=== PATIENT | female | born 1960 | race Two or more races ===

== ENCOUNTER 2020-07-31 00:58 | Inpatient (IN) | payer OTHER ==
[~2020-07-31] VITALS: Ht 170.2 cm; Wt 120.5 kg
[~2020-07-31 00:58] MED LIST: ASPI-630 PO; ATOR20TA58 PO; FAMO20TA5 PO; FURO40TA4 PO; LEVO750T5 PO; LISI-517 PO; POTA8CAP19 PO; PRED20TA PO; SPIR25TA5 PO; UNABLE MC; [UNRECOGNIZED DRUG - OTHER]; adempas PO
--- NOTE | 2020-07-31 01:50 | RAD ---
EXAM: CHEST ONE VIEW. HISTORY: Chest pain. COMPARISON: 03/31/2020. FINDINGS: A frontal view of the chest is obtained. There are mild interstitial opacities in both bases. There is no pneumothorax or clear pleural effusi on. The heart is moderately enlarged. IMPRESSION: 1. Mild pulmonary edema. Moderate cardiomegaly. Electronically signed by: Judie Whitman MD (07/31/2020 1:48 AM) [facility]
[2020-07-31 02:06] LABS: BASO % 0 % (0-3); EOS % 0 % (0-3); HEMATOCRIT 42.4 % (36.0-47.0); HEMOGLOBIN 13.8 g/dL (12.0-15.5); LYMPH # 1.2 x10^3/uL (1.0-4.8); LYMPH % 11 % (24-48); MEAN CORPUSCULAR HEMOGLOBIN 29 pg (25-35); MEAN CORPUSCULAR HGB CONC 33 g/dL (31-37); MEAN CORPUSCULAR VOLUME 89 fL (79-100); MONO # 1.1 x10^3/uL (0.0-1.1); MONO % 9 % (0-9); NEUT # 9.1 x10^3/uL (1.8-7.7); NEUT % 79 % (31-73); PLATELET COUNT 188 x10^3/uL (140-400); RED BLOOD COUNT 4.77 x10^6/uL (3.50-5.40); RED CELL DISTRIBUTION WIDTH 16.9 % (11.5-14.5); WHITE BLOOD COUNT 11.4 x10^3/uL (4.0-11.0)
[2020-07-31 02:19] LABS: CALCIUM 8.1 mg/dL (8.5-10.1); GFR 56.6; POTASSIUM 3.1 mmol/L (3.5-5.1)
[2020-07-31 02:25] LABS: ALBUMIN 2.8 g/dL (3.4-5.0); ALBUMIN/GLOBULIN RATIO 0.8 (1.0-1.7); MAGNESIUM 1.8 mg/dL (1.8-2.4); TOTAL BILIRUBIN 1.5 mg/dL (0.2-1.0); TOTAL PROTEIN 6.5 g/dL (6.4-8.2)
--- NOTE | 2020-07-31 02:52 | PHYS DOC ---
Past Medical History Past Medical History: Cancer, CHF Additional Past Medical Histor: pulmonary hypertension, COLON CA Past Surgical History: Cholecystectomy Additional Past Surgical Histo: COLON RESECTION Smoking Status: Current Every Day Smoker Alcohol Use: Occasionally Drug Use: Methamphetamine Adult General Chief Complaint Chief Complaint: SHORTNESS OF BREATH [facility] HPI Patient is a 60 year old female with a complicated past medical history now pr esenting the emergency department complaining of new onset shortness of breath chest pain. Patient states that approximate 30 minutes prior to arrival she developed worsening sensation of pain sensation over the anterior portion of the chest as well as sensation palpitations. Patient also states that over the last 48 hours he had a general feeling of unwell feeling that she secondly has a subjective fever. Denies any nausea, vomiting, fever, chills, cough, dizziness or lightheadedness. Review of Systems Review of Systems Constitutional: Denies fever or chills [] Eyes: Denies change in visual acuity, redness, or eye pain [] HENT: Denies nasal congestion or sore throat [] Respiratory: Denies cough or shortness of breath [] Cardiovascular: No additional information not addressed in HPI [] GI: Denies abdominal pain, nausea, vomiting, bloody stools or diarrhea [] : Denies dysuria or hematuria [] Musculoskeletal: Denies back pain or joint pain [] Integument: Denies rash or skin lesions [] Neurologic: Denies headache, focal weakness or sensory changes [] Endocrine: Denies polyuria or polydipsia [] All other systems were reviewed and found to be within normal limits, except as documented in this note. Allergies Allergies Allergies Coded Allergies Type Severity Reaction Last Updated Verified Penicillins Allergy Intermediate "hives" 03/11/20 Yes Physical Exam Physical Exam Constitutional: Well developed, well nourished, no acute distress, non-toxic appearance. [] HENT: Normocephalic, atraumatic, bilateral external ears normal, oropharynx moist, no oral exudates, nose normal. [] Eyes: PERRLA, EOMI, conjunctiva normal, no discharge. [] Neck: Normal range of motion, no tenderness, supple, no stridor. [] Cardiovascular:Heart rate regular rhythm, no murmur [] Lungs & Thorax: Bilateral breath sounds clear to auscultation [] Abdomen: Bowel sounds normal, soft, no tenderness, no masses, no pulsatile masses. [] Skin: Warm, dry, no erythema, no rash. [] Back: No tenderness, no CVA tenderness. [] Extremities: No tenderness, no cyanosis, no clubbing, ROM intact, no edema. [] Neurologic: Alert and oriented X 3, normal motor function, normal sensory function, no focal deficits noted. [] Psychologic: Affect normal, judgement normal, mood normal. [] Current Patient Data Vital Signs Vital Signs Date Time Temp Pulse Resp B/P (MAP) Pulse Ox O2 Delivery O2 Flow Rate FiO2 07/31/20 01:00 98.2 111 18 164/100 (121) 93 Room Air 98.2 Lab Values Laboratory Tests Test 07/31/20 02:00 White Blood Count 11.4 x10^3/uL (4.0-11.0) H Red Blood Count 4.77 x10^6/uL (3.50-5.40) Hemoglobin 13.8 g/dL (12.0-15.5) Hematocrit 42.4 % (36.0-47.0) Mean Corpuscular Volume 89 fL (79-100) Mean Corpuscular Hemoglobin 29 pg (25-35) Mean Corpuscular Hemoglobin Concent 33 g/dL (31-37) Red Cell Distribution Width 16.9 % (11.5-14.5) H Platelet Count 188 x10^3/uL (140-400) Neutrophils (%) (Auto) 79 % (31-73) H Lymphocytes (%) (Auto) 11 % (24-48) L Monocytes (%) (Auto) 9 % (0-9) Eosinophils (%) (Auto) 0 % (0-3) Basophils (%) (Auto) 0 % (0-3) Neutrophils # (Auto) 9.1 x10^3/uL (1.8-7.7) H Lymphocytes # (Auto) 1.2 x10^3/uL (1.0-4.8) Monocytes # (Auto) 1.1 x10^3/uL (0.0-1.1) Eosinophils # (Auto) 0.0 x10^3/uL (0.0-0.7) Basophils # (Auto) 0.0 x10^3/uL (0.0-0.2) Sodium Level 138 mmol/L (136-145) Potassium Level 3.1 mmol/L (3.5-5.1) L Chloride Level 100 mmol/L (98-107) Carbon Dioxide Level 26 mmol/L (21-32) Anion Gap 12 (6-14) Blood Urea Nitrogen 15 mg/dL (7-20) Creatinine 1.0 mg/dL (0.6-1.0) Estimated GFR (Cockcroft-Gault) 56.6 BUN/Creatinine Ratio 15 (6-20) Glucose Level 115 mg/dL (70-99) H Calcium Level 8.1 mg/dL (8.5-10.1) L Magnesium Level 1.8 mg/dL (1.8-2.4) Total Bilirubin 1.5 mg/dL (0.2-1.0) H Aspartate Amino Transferase (AST) 42 U/L (15-37) H Alanine Aminotransferase (ALT) 47 U/L (14-59) Alkaline Phosphatase 173 U/L (46-116) H Troponin I Quantitative 0.069 ng/mL (0.000-0.055) TR-Nfz-N-Type Natriuretic Peptide 4809 pg/mL (0-124) H Total Protein 6.5 g/dL (6.4-8.2) Albumin 2.8 g/dL (3.4-5.0) L Albumin/Globulin Ratio 0.8 (1.0-1.7) L Lipase 52 U/L (73-393) L Laboratory Tests 07/31/20 02:00 Laboratory Tests 07/31/20 02:00 EKG EKG Prolonged CO interval intermittently increasing consistent with a type II AV block Radiology/Procedures Radiology/Procedures [] Course & Med Decision Making Course & Med Decision Making Pertinent Labs and Imaging studies reviewed. (See chart for details) 60-year-old female presented with nonspecific chest pain, palpitations and flulike illness. Will obtain ACS work-up as well as infectious work-up. Dragon Disclaimer Dragon Disclaimer This electronic medical record was generated, in whole or in part, using a voice recognition dictation system. Departure Departure Impression: Primary Impression: CHF exacerbation Disposition: ADMITTED INPT THIS HOSP Condition: GOOD Referrals: NO PCP (PCP) ALEN HAYWARD MD Jul 31, 2020 02:52
[2020-07-31] MEDS ORDERED: ONDANSETRON PF 4 MG/2 ML VIAL. IV PRN (03:00)
[2020-07-31 03:45] VITALS: BP 154/95
--- NOTE | 2020-07-31 05:33 | NUR ---
The patient, SARWAT GONZALEZ, 60 y/o, F admitted by JUDAH WYATT MD, was given written information regarding hospital policies, unit procedures and contact persons. Valuables were checked and left with patient at time of admission. Spoke with patient , Riaz. states that patient hasn't been taking her medications as prescribed and has been out of her atorvastatin for approx 1 week. also states that they have had issues getting the medications because the patients new patient case coordinator had her switch pharmacies. Patient currently uses [facility], but will be switching to [facility]. Patient states that she is a current smoker, "approx 1-2 cigarettes per month", "smoke meth but i haven't done that in 5 days since i have been sick". Patient refuses smoking cessation counseling and states that she does not need help with her substance abuse. Patient lost her twin sister approx 1 year ago to COVID and currently has 2 family members that are hospitalized d/t COVID. Patient was COVID positive in Jan 2020. Patient wears 2-4 L O2 NC PRN at home, and CPAP at night. States that she takes Milk of Mag 1-2 times per day for constipation. [facility] light in reach, will continue to monitor.
--- NOTE | 2020-07-31 05:42 | EKG ---
[facility] [address] [place] [address] Test Date: 2020-07-31 Test Time: 01:50:11 Pat Name: SARWAT GONZALEZ Department: Room: Gender: F [employer]: : 1960 Requested By: ALEN HAYWARD Order Number: [id number] Reading MD: Measurements Intervals [place] Rate: 123 P: NV: QRS: 153 QRSD: 114 T: 42 QT: 344 QTc: 499 Interpretive Statements IRREGULAR RHYTHM, NO P-WAVE FOUND ABNORMAL RIGHT AXIS DEVIATION LOW VOLTAGE RVH WITH REPOLARIZATION ABNORMALITY QRS(T) CONTOUR ABNORMALITY CONSISTENT WITH SEPTAL INFARCT AGE UNDETERMINED ABNORMAL ECG RI6.02 No previous ECG available for comparison
[2020-07-31 07:00] VITALS: BP 133/77
[2020-07-31] MEDS ORDERED: CALCIUM CARBONATE 500 MG TAB.CHEW PO PRN (08:00)
[2020-07-31] MEDS ORDERED: BISACODYL 10 MG SUPP.RECT. PR PRN (08:00)
[2020-07-31] MEDS ORDERED: MAGNESIUM HYDROXIDE 2,400 MG/30 ML ORAL.SUSP. PO PRN (08:00)
[2020-07-31] MEDS ORDERED: MAG HYDROX/ALUMINUM HYD/SIMETH 30 ML ORAL.SUSP PO PRN (08:00)
--- NOTE | 2020-07-31 08:15 | PDOC1 ---
History and Physical Date of Admission Date of Admission DATE: 07/31/20 TIME: 07:59 Identification/Chief Complaint Chief Complaint Shortness of breath Source Source: Chart review, Patient History of Present Illness History of Present Illness Patient is a 60-year-old female past medical history CHF, pulmonary hypertension, PE, who presents to the ER with complaints of worsening shortness of breath over the past 5 days. She also reports associated anterior chest pain. States she has generally not been feeling well recently with complaints of subjective fever and cough productive of green sputum. She denies any naus ea, vomiting, hemoptysis, or known sick exposures. Chest x-ray obtained in the ER shows some pulmonary edema. Troponin 0.069, D-dimer 3.84, BNP 4809. Will admit patient for further medical management. Past Medical History Cardiovascular: CHF, HTN, Hyperlipidemia, Pulmonary hypertension Pulmonary: Pulmonary embolus, Other GI: GERD Heme/Onc: Cancer Psych: Depression Past Surgical History Past Surgical History: Cholecystectomy, Colon Resection Family History Family History: Depression Social History Smoke: 1 pack per day ALCOHOL: occassional Drugs: Crystal meth Current Problem List Problem List Problems Medical Problems: (1) CHF exacerbation Status: Acute Current Medications Current Medications Current Medications Ondansetron HCl (Zofran) 4 mg PRN Q8HRS PRN IV NAUSEA/VOMITING; Start 07/31/20 at 03:00; Stop 08/01/20 at 02:59 Aspirin (Aspirin Chewable) 81 mg DAILYWBKFT PO ; Start 07/31/20 at 08:00 Atorvastatin Calcium (Lipitor) 20 mg HS PO ; Start 07/31/20 at 21:00 Famotidine (Pepcid) 20 mg BID PO ; Start 07/31/20 at 09:00 Lisinopril (Prinivil) 5 mg DAILY PO ; Start 07/31/20 at 09:00 Spironolactone (Aldactone) 25 mg BID PO ; Start 07/31/20 at 09:00 Non-Formulary Medication ([adempas] ) 2.5 mg TID PO ; Start 07/31/20 at 09:00; Jp OCHOA Furosemide (Lasix) 40 mg BID92 IVP ; Start 07/31/20 at 09:00 Potassium Chloride (Klor-Con) 40 meq DAILYWBKFT PO ; Start 07/31/20 at 08:00 Active Scripts Active Reported Lisinopril 5 Mg Tablet 5 Mg PO DAILY Famotidine 20 Mg Tablet 20 Mg PO BID Aspirin 81 Mg Tab.chew 81 Mg PO DAILY Atorvastatin Calcium 20 Mg Tablet 20 Mg PO HS Spironolactone 25 Mg Tablet 25 Mg PO BID Furosemide 40 Mg Tablet 40 Mg PO BID Potassium Chloride 8 Meq Capsule.er 16 Meq PO BID [adempas] 2.5 Mg PO TID Allergies Allergies: Coded Allergies: ketamine (Verified Allergy, Severe, Anaphylaxis, 07/31/20) Penicillins (Verified Allergy, Intermediate, "hives" , 03/11/20) ROS Review of System GENERAL: Fever. No history of weight change, weakness. SKIN: No bruising, hair changes or rashes. EYES: No blurred, double or loss of vision. NOSE AND THROAT: No history of nosebleeds, hoarseness or sore throat. HEART: Denies chest pain, denies palpitations. LUNGS: Shortness of breath, cough. Denies hemoptysis. GASTROINTESTINAL: Denies nausea, vomiting, abdominal pain. GENITOURINARY: Denies dysuria, frequency, urgency, hematuria. NEUROLOGIC: Denies history of numbness, tingling, tremor or weakness. PSYCHIATRIC: Denies anxiety, denies depression. ENDOCRINE: No history of heat or cold intolerance, polyuria or polydipsia. EXTREMITIES: Denies muscle weakness, joint pain, pain on walking or stiffness. Physical Exam Physical Exam General: Alert, Oriented X3, mild distress. Obese. HEENT: Atraumatic, EOMI Lungs: Bibasilar rales Heart: Tachycardic, no rubs Cardiovascular: S1, S2 Abdomen: Normal bowel sounds, Soft, No tenderness Extremities: +2 Bilateral leg edema Skin: Erythema of the bilateral lower extremities up to proximal moore. No breakdown, No significant lesion Neuro: Normal speech, Sensation intact Psych/Mental Status: Mental status NL, tearful Vitals Vitals Vital Signs Date Time Temp Pulse Resp B/P (MAP) Pulse Ox O2 Delivery O2 Flow Rate FiO2 07/31/20 04:44 Room Air 07/31/20 03:45 98.3 114 20 154/95 (114) 92 98.3 Labs Labs Laboratory Tests Test 07/31/20 02:00 07/31/20 07:20 White Blood Count 11.4 x10^3/uL (4.0-11.0) Red Blood Count 4.77 x10^6/uL (3.50-5.40) Hemoglobin 13.8 g/dL (12.0-15.5) Hematocrit 42.4 % (36.0-47.0) Mean Corpuscular Volume 89 fL (79-100) Mean Corpuscular Hemoglobin 29 pg (25-35) Mean Corpuscular Hemoglobin Concent 33 g/dL (31-37) Red Cell Distribution Width 16.9 % (11.5-14.5) Platelet Count 188 x10^3/uL (140-400) Neutrophils (%) (Auto) 79 % (31-73) Lymphocytes (%) (Auto) 11 % (24-48) Monocytes (%) (Auto) 9 % (0-9) Eosinophils (%) (Auto) 0 % (0-3) Basophils (%) (Auto) 0 % (0-3) Neutrophils # (Auto) 9.1 x10^3/uL (1.8-7.7) Lymphocytes # (Auto) 1.2 x10^3/uL (1.0-4.8) Monocytes # (Auto) 1.1 x10^3/uL (0.0-1.1) Eosinophils # (Auto) 0.0 x10^3/uL (0.0-0.7) Basophils # (Auto) 0.0 x10^3/uL (0.0-0.2) D-Dimer (Tiarra) 3.84 ug/mlFEU (0.00-0.50) Sodium Level 138 mmol/L (136-145) Potassium Level 3.1 mmol/L (3.5-5.1) Chloride Level 100 mmol/L (98-107) Carbon Dioxide Level 26 mmol/L (21-32) Anion Gap 12 (6-14) Blood Urea Nitrogen 15 mg/dL (7-20) Creatinine 1.0 mg/dL (0.6-1.0) Estimated GFR (Cockcroft-Gault) 56.6 BUN/Creatinine Ratio 15 (6-20) Glucose Level 115 mg/dL (70-99) Calcium Level 8.1 mg/dL (8.5-10.1) Magnesium Level 1.8 mg/dL (1.8-2.4) Total Bilirubin 1.5 mg/dL (0.2-1.0) Aspartate Amino Transf (AST/SGOT) 42 U/L (15-37) Alanine Aminotransferase (ALT/SGPT) 47 U/L (14-59) Alkaline Phosphatase 173 U/L (46-116) Troponin I Quantitative 0.069 ng/mL (0.000-0.055) 0.062 ng/mL (0.000-0.055) CV-Ddi-V-Type Natriuretic Peptide 4809 pg/mL (0-124) Total Protein 6.5 g/dL (6.4-8.2) Albumin 2.8 g/dL (3.4-5.0) Albumin/Globulin Ratio 0.8 (1.0-1.7) Lipase 52 U/L (73-393) Laboratory Tests Test 07/31/20 02:00 07/31/20 07:20 White Blood Count 11.4 x10^3/uL (4.0-11.0) Red Blood Count 4.77 x10^6/uL (3.50-5.40) Hemoglobin 13.8 g/dL (12.0-15.5) Hematocrit 42.4 % (36.0-47.0) Mean Corpuscular Volume 89 fL (79-100) Mean Corpuscular Hemoglobin 29 pg (25-35) Mean Corpuscular Hemoglobin Concent 33 g/dL (31-37) Red Cell Distribution Width 16.9 % (11.5-14.5) Platelet Count 188 x10^3/uL (140-400) Neutrophils (%) (Auto) 79 % (31-73) Lymphocytes (%) (Auto) 11 % (24-48) Monocytes (%) (Auto) 9 % (0-9) Eosinophils (%) (Auto) 0 % (0-3) Basophils (%) (Auto) 0 % (0-3) Neutrophils # (Auto) 9.1 x10^3/uL (1.8-7.7) Lymphocytes # (Auto) 1.2 x10^3/uL (1.0-4.8) Monocytes # (Auto) 1.1 x10^3/uL (0.0-1.1) Eosinophils # (Auto) 0.0 x10^3/uL (0.0-0.7) Basophils # (Auto) 0.0 x10^3/uL (0.0-0.2) D-Dimer (Tiarra) 3.84 ug/mlFEU (0.00-0.50) Sodium Level 138 mmol/L (136-145) Potassium Level 3.1 mmol/L (3.5-5.1) Chloride Level 100 mmol/L (98-107) Carbon Dioxide Level 26 mmol/L (21-32) Anion Gap 12 (6-14) Blood Urea Nitrogen 15 mg/dL (7-20) Creatinine 1.0 mg/dL (0.6-1.0) Estimated GFR (Cockcroft-Gault) 56.6 BUN/Creatinine Ratio 15 (6-20) Glucose Level 115 mg/dL (70-99) Calcium Level 8.1 mg/dL (8.5-10.1) Magnesium Level 1.8 mg/dL (1.8-2.4) Total Bilirubin 1.5 mg/dL (0.2-1.0) Aspartate Amino Transf (AST/SGOT) 42 U/L (15-37) Alanine Aminotransferase (ALT/SGPT) 47 U/L (14-59) Alkaline Phosphatase 173 U/L (46-116) Troponin I Quantitative 0.069 ng/mL (0.000-0.055) 0.062 ng/mL (0.000-0.055) IR-Pgh-Z-Type Natriuretic Peptide 4809 pg/mL (0-124) Total Protein 6.5 g/dL (6.4-8.2) Albumin 2.8 g/dL (3.4-5.0) Albumin/Globulin Ratio 0.8 (1.0-1.7) Lipase 52 U/L (73-393) Images Images PORTABLE CHEST 1V EXAM: CHEST ONE VIEW. HISTORY: Chest pain. COMPARISON: 03/31/2020. FINDINGS: A frontal view of the chest is obtained. There are mild interstitial opacities in both bases. There is no pneumothorax or clear pleural effusion. The heart is moderately enlarged. IMPRESSION: 1. Mild pulmonary edema. Moderate cardiomegaly. VTE Prophylaxis Ordered VTE Prophylaxis Devices: No VTE Pharmacological Prophylaxi: Yes Assessment/Plan Assessment/Plan Acute CHF exacerbation Elevated troponin Elevated D-dimer Hypokalemia Malnutrition Obesity COVID-19 PUI Plan: Chest x-ray shows mild pulmonary edema and cardiomegaly Consultation placed to cardiology Diurese with IV Lasix twice daily Will obtain echocardiogram Obtain CTA chest to evaluate for possible PE pit hand Replace potassium COVID-19 pending, influenza pending Resume home medications FEN - Cardiac diet PPX - Lovenox FULL CODE Dispo - inpatient for above Justifications for Admission Other Justification Acute CHF exacerbation, acute COPD SHELLI ELLIOTT MD Jul 31, 2020 08:15
[2020-07-31] MEDS: POTASSIUM CHLORIDE 20 MEQ TABLET.ER. PO SCH (08:22)
[2020-07-31] MEDS: FAMOTIDINE 20 MG TABLET. PO SCH ×2 (08:23→22:45)
[2020-07-31] MEDS: ASPIRIN CHEWABLE 81 MG TABLET. PO SCH (08:23)
[2020-07-31] MEDS: SPIRONOLACTONE 25 MG TABLET PO SCH ×2 (08:23→22:45)
[2020-07-31] MEDS: FUROSEMIDE 40 MG/4 ML VIAL. IVP SCH ×2 (08:23→12:47)
[2020-07-31] MEDS: LISINOPRIL 5 MG TABLET. PO SCH (08:24)
[2020-07-31] MEDS ORDERED: IOHEXOL 350 MG/ML 100 ML VIAL. ONE (08:44)
[2020-07-31] MEDS: ADEMPAS 2.5 MG PO SCH ×3 (09:00→21:00)
[2020-07-31] MEDS ORDERED: ENOXAPARIN 40 MG/0.4 ML SYRINGE. SQ SCH (09:00)
--- NOTE | 2020-07-31 09:27 | RAD ---
EXAM: CT chest with contrast - pulmonary embolus protocol CLINICAL HISTORY: Chest pain, elevated d-dimer COMPARISON: CT chest 03/31/2020 TECHNIQUE: CT of the chest following the administration of intravenous contrast during the pulmonary arterial phase. Axial, coronal and sagittal reformatted images were generated including MIP images. ---PQRS compliance statement - One or more of the following individualized dose reduction techniques were utilized for this study: 1. Automated exposure control 2. Adjustment of the mA and/or kV according to patient size 3. Use of iterative reconstruction technique--- FINDINGS: CHEST: Diagnostic quality: Suboptimal contrast bolus and motion artifact limits evaluation. Pulmonary emboli: Examination significantly limited for pulmonary embolus. However within these cons traints no filling defect is seen within a right lower lobe subsegmental pulmonary artery (series 3 i mage 85-89). There may also be pulmonary emboli in the segmental branches of the left lower lobe alth ough evaluation is limited given contrast bolus. Right heart strain: Enlargement of the right ventricle although this appears chronic compared to 03/31 and may be seen with right heart failure although component of right heart strain cannot be exc luded. Pulmonary arteries: Normal in caliber. Heart is moderately enlarged. As above there is enlargement of the right ventricle and right atrium. No pericardial effusion. Coronary artery calcifications are seen. No pleural effusion or pneumothorax. No axillary lymphadenopathy. Prominent mediastinal lymph nodes are seen, for example a prevascular ly mph node measures 9 mm short axis. Calcified mediastinal and hilar lymph nodes are seen. For example a calcified precarinal lymph node measures 1.7 x 1.2 cm. Linear and bandlike opacities lower lobes likely scarring/atelectasis. Associated patchy opacities ar e also seen may represent atelectasis although superimposed consolidative process is not excluded. Ca lcified granuloma are seen. Visualized Upper abdomen: Mild retroperitoneal infiltration of the upper abdomen is seen of uncertai n clinical significance, Bones: Multilevel degenerative changes of spine are seen. No aggressive osseous lesion. However evalu ation is limited given MIP reconstructions. IMPRESSION: 1. Pulmonary emboli are seen within the segmental pulmonary arterial branches of the lower lobes. 2. Enlargement of the right ventricle is similar to 03/31/2020, likely chronic right heart failure al though given these findings, right heart strain cannot be excluded. 3. Patchy opacities in lung bases may represent multifocal consolidative process or atelectasis or e tara infarction may also have this appearance. Imaging follow-up in 3-6 months is recommended to excl ude underlying mass. Findings discussed with patient's nurse Seth at 07/31/2020 9:23 AM. FOR INTERNAL CODING PURPOSES RESULT CODE: (C) Electronically signed by: Darrin Bynum MD (07/31/2020 9:25 AM) [facility]
[2020-07-31 10:19] LABS: INFLUENZA A PATIENT NEGATIVE (NEGATIVE); INFLUENZA B PATIENT NEGATIVE (NEGATIVE)
[2020-07-31] MEDS ORDERED: NICOTINE 21MG PATCH. TD PRN (10:45)
[2020-07-31 11:00] VITALS: BP 128/83
[2020-07-31] MEDS ORDERED: DEXTROSE 50% 25 GM / 50ML DISP.SYRIN. IV ONE (12:00)
[2020-07-31] MEDS ORDERED: SODIUM BICARB ADULT 8.4% 50 MEQ/50 ML DISP.SYRIN. ONE (12:00)
[2020-07-31] MEDS ORDERED: ATROPINE 0.5 MG/5 ML DISP.SYRINGE. ONE (12:00)
[2020-07-31] MEDS ORDERED: EPINEPHrine SYRINGE 1 MG/10 ML SYRINGE ONE (12:00)
[2020-07-31] MEDS ORDERED: CALCIUM CHLORIDE 1,000 MG/10 ML DISP.SYRIN ONE (12:00)
[2020-07-31] MEDS: DOXYCYCLINE HYCLATE 100 MG in IV DEXTROSE 5% 100ML 100 ML IV SCH ×2 (12:48→22:45)
[2020-07-31] MEDS: predniSONE 20 MG TABLET PO SCH (12:49)
--- NOTE | 2020-07-31 13:22 | RAD ---
CLINICAL HISTORY: Reason: PE / Spl. Instructions: / History: COMPARISON: None available. TECHNIQUE: Ultrasound evaluation of both legs was performed from the groin to the upper calf with [place] scale, sp ectral and color doppler evaluation. FINDINGS: The common femoral vein, and femoral vein, including the saphenous-femoral junction are normal in jessi earance. Color and spectral Doppler evaluation demonstrates normal spontaneous flow, augmentation and phasicity. The popliteal vein and visualized calf veins also demonstrate normal compressibility and flow. Soft tissue edema about the lower legs bilaterally. IMPRESSION: 1. No evidence for DVT in the bilateral lower extremities. 2. Soft tissue edema about the lower legs bilaterally. Electronically signed by: Darrin Bynum MD (07/31/2020 1:19 PM) [facility]
[2020-07-31 14:04] LABS: BARBITURATES NEG (NEG); BENZODIAZEPINES NEG (NEG); CANNABINOIDS NEG (NEG); COCAINE NEG (NEG); METHADONE NEG (NEG); OPIATES NEG (NEG); PHENCYCLIDINE NEG (NEG)
[2020-07-31 14:05] LABS: AMPHETAMINE/METHAMPHETAMINE POS (NEG)
[2020-07-31 15:00] VITALS: BP 118/71
--- NOTE | 2020-07-31 16:35 | PDOC2 ---
CONSULT Date of Consult Date of Consult DATE: 07/31/20 TIME: 16:29 Reason for Consult Reason for Consult: Chest pain and shortness of breath Referring Physician Referring Physician: Dr. Junior Identification/Chief Complaint Chief Complaint Shortness of breath Source Source: Chart review, Patient History of Present Illness Reason for Visit: The patient is a 60-year-old female who reports episodes of increasing shortness of breath and chest pressure over the past several days. She came to the emergency room for treatment and evaluation. Chest x-ray showed mild pulmonary edema and moderate cardiomegaly. Initial troponins were 0.069, 0.062 and 0.060. EKG showed no acute ischemic changes. BNP was mildly elevated at 09/02/2008. The patient then proceeded to a CTA of the chest which was positive for pu lmonary emboli in the segmental pulmonary arteries in the branches to the lower lobes. Lower extremity ultrasound study showed no DVT. She has been placed on full dose Lovenox. Patient's history is also difficult giving for heart failure and pulmonary hypertension. She additionally has a history of colon cancer and continues to smoke 1 pack of cigarettes a day. Covid testing has come back negative. Past Medical History Cardiovascular: CHF, HTN, Hyperlipidemia, Pulmonary hypertension Pulmonary: Pulmonary embolus, Other GI: GERD Heme/Onc: Cancer Psych: Depression Past Surgical History Past Surgical History: Cholecystectomy, Colon Resection Family History Family History: Hypertension Social History 1 pack per day ALCOHOL: occassional Current Problem List Problem List Problems Medical Problems: (1) CHF exacerbation Status: Acute Current Medications Current Medications Current Medications Ondansetron HCl (Zofran) 4 mg PRN Q8HRS PRN IV NAUSEA/VOMITING; Start 07/31/20 at 03:00; Stop 07/31/20 at 08:02; Status DC Aspirin (Aspirin Chewable) 81 mg DAILYWBKFT PO Last administered on 07/31/20at 08:23; Start 07/31/20 at 08:00 Atorvastatin Calcium (Lipitor) 20 mg HS PO ; Start 07/31/20 at 21:00 Famotidine (Pepcid) 20 mg BID PO Last administered on 07/31/20at 08:23; Start 07/31/20 at 09:00 Lisinopril (Prinivil) 5 mg DAILY PO Last administered on 07/31/20at 08:24; Start 07/31/20 at 09:00 Spironolactone (Aldactone) 25 mg BID PO Last administered on 07/31/20at 08:23; Start 07/31/20 at 09:00 Non-Formulary Medication ([adempas] ) 2.5 mg TID PO Last administered on 07/31/20at 12:44; Start 07/31/20 at 09:00; Status UNV Furosemide (Lasix) 40 mg BID92 IVP Last administered on 07/31/20at 12:47; Start 07/31/20 at 09:00 Potassium Chloride (Klor-Con) 40 meq DAILYWBKFT PO Last administered on 07/31/20at 08:22; Start 07/31/20 at 08:00 Ondansetron HCl (Zofran) 4 mg PRN Q6HRS PRN IVP NAUSEA/VOMITING; Start 07/31/20 at 08:00 Al Hydroxide/Mg Hydroxide (Mylanta Plus Xs) 30 ml PRN Q3HRS PRN PO HEARTBURN / GAS; Start 07/31/20 at 08:00 Calcium Carbonate/ Glycine (Tums) 500 mg PRN Q3HRS PRN PO UPSET STOMACH; Start 07/31/20 at 08:00 Morphine Sulfate (Morphine Sulfate) 2 mg PRN Q1HR PRN IV PAIN; Start 07/31/20 at 08:00 Acetaminophen (Tylenol) 650 mg PRN Q6HRS PRN PO Headaches, Temp > 101.5F; Start 07/31/20 at 08:00 Magnesium Hydroxide (Milk Of Magnesia) 2,400 mg PRN Q12HR PRN PO CONSTIPATION; Start 07/31/20 at 08:00 Bisacodyl (Dulcolax Supp) 10 mg PRN DAILY PRN IN CONSTIPATION; Start 07/31/20 at 08:00 Enoxaparin Sodium (Lovenox 40mg Syringe) 40 mg Q12HR SQ Last administered on 07/31/20at 08:24; Start 07/31/20 at 09:00; Stop 07/31/20 at 10:49; Status DC Iohexol (Omnipaque 350 Mg/ml) 100 ml STK-MED ONCE .ROUTE ; Start 07/31/20 at 08:44; Stop 07/31/20 at 08:45; Status DC Enoxaparin Sodium (Lovenox Per Pharmacy Treatment Dosing) 1 each BID PRN MC SEE COMMENTS; Start 07/31/20 at 10:15 Nicotine (Nicoderm Cq 21mg) 1 patch PRN DAILY PRN TD SMOKING CESSATION; Start 07/31/20 at 10:45 Enoxaparin Sodium (Lovenox 80mg Syringe) 80 mg 1X ONCE SQ Last administered on 07/31/20at 11:02; Start 07/31/20 at 11:00; Stop 07/31/20 at 11:02; Status DC Enoxaparin Sodium (Lovenox 120mg Syringe) 120 mg Q12HR SQ ; Start 07/31/20 at 21:00 Doxycycline Hyclate 100 mg/ Dextrose 100 ml @ 50 mls/hr Q12HR IV Last administered on 07/31/20at 12:48; Start 07/31/20 at 11:00; Stop 08/05/20 at 10:59 Prednisone (Prednisone) 40 mg DAILY PO Last administered on 07/31/20at 12:49; Start 07/31/20 at 11:00; Stop 08/06/20 at 10:59 Fluticasone/ Vilanterol (Breo Ellipta 100-25 Mcg) 1 puff DAILY INH ; Start 08/01/20 at 09:00 Active Scripts Active Reported Lisinopril 5 Mg Tablet 5 Mg PO DAILY Famotidine 20 Mg Tablet 20 Mg PO BID Aspirin 81 Mg Tab.chew 81 Mg PO DAILY Atorvastatin Calcium 20 Mg Tablet 20 Mg PO HS Spironolactone 25 Mg Tablet 25 Mg PO BID Furosemide 40 Mg Tablet 40 Mg PO BID Potassium Chloride 8 Meq Capsule.er 16 Meq PO BID [adempas] 2.5 Mg PO TID Allergies Allergies: Coded Allergies: ketamine (Verified Allergy, Severe, Anaphylaxis, 07/31/20) Penicillins (Verified Allergy, Intermediate, "hives" , 03/11/20) ROS General: YES: Fatigue Respiratory: YES: Shortness of breath, SOB with excertion Cardiovascular: yes Chest Pain Physical Exam General: mild distress Lungs: Other (Mildly decreased breath sounds in the bases.) Heart: Regular rate Abdomen: Normal bowel sounds Vitals VITALS Vital Signs Date Time Temp Pulse Resp B/P (MAP) Pulse Ox O2 Delivery O2 Flow Rate FiO2 07/31/20 15:00 98.3 114 22 118/71 (87) 90 Nasal Cannula 2.0 98.3 Labs Labs Laboratory Tests Test 07/31/20 02:00 07/31/20 07:20 07/31/20 08:20 07/31/20 09:30 White Blood Count 11.4 x10^3/uL (4.0-11.0) Red Blood Count 4.77 x10^6/uL (3.50-5.40) Hemoglobin 13.8 g/dL (12.0-15.5) Hematocrit 42.4 % (36.0-47.0) Mean Corpuscular Volume 89 fL (79-100) Mean Corpuscular Hemoglobin 29 pg (25-35) Mean Corpuscular Hemoglobin Concent 33 g/dL (31-37) Red Cell Distribution Width 16.9 % (11.5-14.5) Platelet Count 188 x10^3/uL (140-400) Neutrophils (%) (Auto) 79 % (31-73) Lymphocytes (%) (Auto) 11 % (24-48) Monocytes (%) (Auto) 9 % (0-9) Eosinophils (%) (Auto) 0 % (0-3) Basophils (%) (Auto) 0 % (0-3) Neutrophils # (Auto) 9.1 x10^3/uL (1.8-7.7) Lymphocytes # (Auto) 1.2 x10^3/uL (1.0-4.8) Monocytes # (Auto) 1.1 x10^3/uL (0.0-1.1) Eosinophils # (Auto) 0.0 x10^3/uL (0.0-0.7) Basophils # (Auto) 0.0 x10^3/uL (0.0-0.2) D-Dimer (Tiarra) 3.84 ug/mlFEU (0.00-0.50) Sodium Level 138 mmol/L (136-145) Potassium Level 3.1 mmol/L (3.5-5.1) Chloride Level 100 mmol/L (98-107) Carbon Dioxide Level 26 mmol/L (21-32) Anion Gap 12 (6-14) Blood Urea Nitrogen 15 mg/dL (7-20) Creatinine 1.0 mg/dL (0.6-1.0) Estimated GFR (Cockcroft-Gault) 56.6 BUN/Creatinine Ratio 15 (6-20) Glucose Level 115 mg/dL (70-99) Calcium Level 8.1 mg/dL (8.5-10.1) Magnesium Level 1.8 mg/dL (1.8-2.4) Total Bilirubin 1.5 mg/dL (0.2-1.0) Aspartate Amino Transf (AST/SGOT) 42 U/L (15-37) Alanine Aminotransferase (ALT/SGPT) 47 U/L (14-59) Alkaline Phosphatase 173 U/L (46-116) Troponin I Quantitative 0.069 ng/mL (0.000-0.055) 0.062 ng/mL (0.000-0.055) ZZ-Mss-K-Type Natriuretic Peptide 4809 pg/mL (0-124) Total Protein 6.5 g/dL (6.4-8.2) Albumin 2.8 g/dL (3.4-5.0) Albumin/Globulin Ratio 0.8 (1.0-1.7) Lipase 52 U/L (73-393) Procalcitonin 0.25 ng/mL (0.00-0.10) Influenza Type A Antigen Negative (NEGATIVE) Influenza Type B Antigen Negative (NEGATIVE) SARS-CoV-2 Antigen (Rapid) Negative (NEGATIVE) Test 07/31/20 11:00 07/31/20 13:15 Troponin I Quantitative 0.060 ng/mL (0.000-0.055) Urine Opiates Screen Neg (NEG) Urine Methadone Screen Neg (NEG) Urine Barbiturates Neg (NEG) Urine Phencyclidine Screen Neg (NEG) Urine Amphetamine/Methamphetamine Pos (NEG) Urine Benzodiazepines Screen Neg (NEG) Urine Cocaine Screen Neg (NEG) Urine Cannabinoids Screen Neg (NEG) Urine Ethyl Alcohol Neg (NEG) Laboratory Tests Test 07/31/20 02:00 07/31/20 07:20 07/31/20 08:20 07/31/20 09:30 White Blood Count 11.4 x10^3/uL (4.0-11.0) Red Blood Count 4.77 x10^6/uL (3.50-5.40) Hemoglobin 13.8 g/dL (12.0-15.5) Hematocrit 42.4 % (36.0-47.0) Mean Corpuscular Volume 89 fL (79-100) Mean Corpuscular Hemoglobin 29 pg (25-35) Mean Corpuscular Hemoglobin Concent 33 g/dL (31-37) Red Cell Distribution Width 16.9 % (11.5-14.5) Platelet Count 188 x10^3/uL (140-400) Neutrophils (%) (Auto) 79 % (31-73) Lymphocytes (%) (Auto) 11 % (24-48) Monocytes (%) (Auto) 9 % (0-9) Eosinophils (%) (Auto) 0 % (0-3) Basophils (%) (Auto) 0 % (0-3) Neutrophils # (Auto) 9.1 x10^3/uL (1.8-7.7) Lymphocytes # (Auto) 1.2 x10^3/uL (1.0-4.8) Monocytes # (Auto) 1.1 x10^3/uL (0.0-1.1) Eosinophils # (Auto) 0.0 x10^3/uL (0.0-0.7) Basophils # (Auto) 0.0 x10^3/uL (0.0-0.2) D-Dimer (Tiarra) 3.84 ug/mlFEU (0.00-0.50) Sodium Level 138 mmol/L (136-145) Potassium Level 3.1 mmol/L (3.5-5.1) Chloride Level 100 mmol/L (98-107) Carbon Dioxide Level 26 mmol/L (21-32) Anion Gap 12 (6-14) Blood Urea Nitrogen 15 mg/dL (7-20) Creatinine 1.0 mg/dL (0.6-1.0) Estimated GFR (Cockcroft-Gault) 56.6 BUN/Creatinine Ratio 15 (6-20) Glucose Level 115 mg/dL (70-99) Calcium Level 8.1 mg/dL (8.5-10.1) Magnesium Level 1.8 mg/dL (1.8-2.4) Total Bilirubin 1.5 mg/dL (0.2-1.0) Aspartate Amino Transf (AST/SGOT) 42 U/L (15-37) Alanine Aminotransferase (ALT/SGPT) 47 U/L (14-59) Alkaline Phosphatase 173 U/L (46-116) Troponin I Quantitative 0.069 ng/mL (0.000-0.055) 0.062 ng/mL (0.000-0.055) JL-Nvs-H-Type Natriuretic Peptide 4809 pg/mL (0-124) Total Protein 6.5 g/dL (6.4-8.2) Albumin 2.8 g/dL (3.4-5.0) Albumin/Globulin Ratio 0.8 (1.0-1.7) Lipase 52 U/L (73-393) Procalcitonin 0.25 ng/mL (0.00-0.10) Influenza Type A Antigen Negative (NEGATIVE) Influenza Type B Antigen Negative (NEGATIVE) SARS-CoV-2 Antigen (Rapid) Negative (NEGATIVE) Test 07/31/20 11:00 07/31/20 13:15 Troponin I Quantitative 0.060 ng/mL (0.000-0.055) Urine Opiates Screen Neg (NEG) Urine Methadone Screen Neg (NEG) Urine Barbiturates Neg (NEG) Urine Phencyclidine Screen Neg (NEG) Urine Amphetamine/Methamphetamine Pos (NEG) Urine Benzodiazepines Screen Neg (NEG) Urine Cocaine Screen Neg (NEG) Urine Cannabinoids Screen Neg (NEG) Urine Ethyl Alcohol Neg (NEG) Images Images Chest x-ray with mild pulmonary edema and moderate cardiomegaly. CTA of the chest is positive for pulmonary emboli in the segmental pulmonary artery branches to the lower lobes. Lower extremity ultrasound is negative for DVTs. Assessment/Plan Assessment/Plan 1. Pulmonary emboli. Positive CTA scan as above. Patient has been started on full dose Lovenox. We will check an echocardiogram for right and left LV function and signs of right-sided distress. 2. Congestive heart failure. Mild diuresis as tolerated with monitoring of potassium. 3. History of pulmonary hypertension. Echo as above. Continue treatment of underlying pulmonary emboli. 4. History of colon cancer. 5. Hypokalemia. Replace and monitor. Thank you for allowing us to participate in the care of your patient. DUSTY MENDOZA MD Jul 31, 2020 16:35
--- NOTE | 2020-07-31 17:11 | CONS ---
DATE OF CONSULTATION: 07/31/2020 I was asked to see this 60-year-old lady for pulmonary embolism. HISTORY OF PRESENT ILLNESS: She has history of [id number] smoking, continues to smoke. She does have COPD. She is on oxygen 2-4 liters, which she uses as p.r.n. basis. She has not felt well for the past few days. She has had increased shortness of breath, cough and wheezing. She denies fever or chills. She has had chest pain. PAST MEDICAL HISTORY: Colon cancer, status post colon resection in 2016 at [facility], pulmonary embolism in 2017 status post 5.5 moths of Lovenox, CHF, COPD, hypertension, cholecystectomy. ALLERGIES: PENICILLIN, KETAMINE. MEDICATIONS: Currently, she is on Lovenox 1 mg/kg b.i.d., Lipitor, prednisone, doxycycline, Lasix, Pepcid, spironolactone, aspirin, potassium. SOCIAL HISTORY: History of [id number] smoking, continues to smoke. FAMILY HISTORY: Depression. REVIEW OF SYSTEMS: As mentioned as above, other systems otherwise negative. PHYSICAL EXAMINATION: GENERAL: This is an overweight lady. VITAL SIGNS: Her O2 saturation on 2.5 liters of oxygen is 92%, respiratory rate 20, heart rate 58, blood pressure 154/95, temperature 98.1. HEENT: Normocephalic, atraumatic. CARDIOVASCULAR: Regular rate and rhythm. CHEST INSPECTION: There are no accessory muscle use. ABDOMEN: Obese. EXTREMITIES: There is edema. NEUROLOGIC: Alert and oriented. LABORATORY DATA: I reviewed the following lab data: CT of the chest did show pulmonary embolism within segmental pulmonary arterial branches of the lower lobes, enlargement of right ventricle patchy opacities in right lung base, infiltrate/atelectasis. Sodium 138, potassium 2.1, chloride 100, CO2 of 26, BUN 15, creatinine 1, glucose 115, AST 42, ALT 47, alk phos 147. Troponin 0.069 and 0.062. BNP 4809. IMPRESSION: 1. Acute on chronic respiratory failure, multifactorial in etiology, including pulmonary embolism, acute exacerbation of chronic obstructive pulmonary disease, acute bronchitis, acute diastolic congestive heart failure. 2. Abnormal CT of the chest. 3. Pulmonary embolism. 4. Acute exacerbation of chronic obstructive pulmonary disease. 5. Smoker. 6. History of pulmonary embolism. 7. History of colon cancer status post resection. 8. COVID-19 person under investigation. 9. Hypokalemia. 10. Obesity, obstructive sleep apnea-hypopnea syndrome. PLAN AND RECOMMENDATIONS: 1. Titrate FiO2 to keep O2 saturation 92%. 2. Continue prednisone. 3. Continue with doxycycline. 4. Agree with Lovenox 1 mg/kg every 12 hours. 5. Pepcid for stress ulcer prophylaxis. 6. Follow up COVID-19 testing. 7. Replace potassium. 8. This is her second pulmonary embolism, she will require lifelong anticoagulation. The findings and recommendations were discussed with the patient and Dr. Junior and RN. Thank you very much for allowing me to participate in care of this very nice lady. ALE WALH M.D. DR: Crispin JOB#: [id number] / [id number] MARIANA
[2020-07-31 19:00] VITALS: BP 116/79
[2020-07-31] MEDS: ATORVASTATIN CALCIUM 20 MG TABLET PO SCH (22:45)
[2020-08-01 03:00] VITALS: BP 118/75
[2020-08-01 05:05] LABS: BASO % 0 % (0-3); EOS % 0 % (0-3); HEMATOCRIT 41.5 % (36.0-47.0); HEMOGLOBIN 13.4 g/dL (12.0-15.5); LYMPH # 1.3 x10^3/uL (1.0-4.8); LYMPH % 17 % (24-48); MEAN CORPUSCULAR HEMOGLOBIN 29 pg (25-35); MEAN CORPUSCULAR HGB CONC 32 g/dL (31-37); MEAN CORPUSCULAR VOLUME 89 fL (79-100); MONO # 0.7 x10^3/uL (0.0-1.1); MONO % 9 % (0-9); NEUT # 5.9 x10^3/uL (1.8-7.7); NEUT % 74 % (31-73); PLATELET COUNT 194 x10^3/uL (140-400); RED BLOOD COUNT 4.67 x10^6/uL (3.50-5.40); RED CELL DISTRIBUTION WIDTH 16.3 % (11.5-14.5)
[2020-08-01 05:46] LABS: CALCIUM 8.1 mg/dL (8.5-10.1); CREATININE 1.2 mg/dL (0.6-1.0); GFR 45.8; POTASSIUM 3.3 mmol/L (3.5-5.1)
[2020-08-01 07:00] VITALS: BP 117/82
[2020-08-01] MEDS: ADEMPAS 2.5 MG PO SCH (09:00)
[2020-08-01] MEDS: FAMOTIDINE 20 MG TABLET. PO SCH ×2 (09:04→20:48)
[2020-08-01] MEDS: SPIRONOLACTONE 25 MG TABLET PO SCH ×2 (09:04→20:48)
[2020-08-01] MEDS: POTASSIUM CHLORIDE 20 MEQ TABLET.ER. PO SCH (09:04)
[2020-08-01] MEDS: ASPIRIN CHEWABLE 81 MG TABLET. PO SCH (09:04)
--- NOTE | 2020-08-01 09:04 | EKG ---
[facility] [address] [place] [address] Test Date: 2020-08-01 Test Time: 09:02:11 Pat Name: SARWAT GONZALEZ Department: Room: 671 1 Gender: F Design Chief: : 1960 Requested By: DUSTY MENDOZA Order Number: [id number] Reading MD: Measurements Intervals Gage Rate: 103 P: TX: QRS: 139 QRSD: 112 T: -5 QT: 378 QTc: 497 Interpretive Statements IRREGULAR RHYTHM, NO P-WAVE FOUND VENTRICULAR PREMATURE COMPLEX(ES) ABNORMAL RIGHT AXIS DEVIATION LOW LIMB LEAD VOLTAGE RIGHT VENTRICULAR HYPERTROPHY QRS(T) CONTOUR ABNORMALITY CONSISTENT WITH SEPTAL INFARCT AGE UNDETERMINED CONSISTENT WITH HIGH LATERAL INFARCT PROBABLY OLD T ABNORMALITY IN ANTERIOR LEADS INFERIOR LEADS ABNORMAL ECG RI6.01 Compared to ECG 07/31/2020 01:50:11 T-wave abnormality now present Early repolarization no longer present Myocardial infarct finding still present
[2020-08-01] MEDS: LISINOPRIL 5 MG TABLET. PO SCH (09:05)
[2020-08-01] MEDS: predniSONE 20 MG TABLET PO SCH (09:05)
[2020-08-01] MEDS: FUROSEMIDE 40 MG/4 ML VIAL. IVP SCH ×2 (09:05→14:16)
[2020-08-01] MEDS: FLUTICASONE/VILANTEROL 100/25 INHALER. INH SCH (09:07)
[2020-08-01] MEDS: DOXYCYCLINE HYCLATE 100 MG in IV DEXTROSE 5% 100ML 100 ML IV SCH ×2 (09:08→20:46)
[2020-08-01 11:00] VITALS: BP 120/78
--- NOTE | 2020-08-01 11:03 | PDOC ---
PULMONARY PROGRESS NOTES DATE: 08/01/20 TIME: 11:00 Subjective on sob better, has cough doesnt use her cpap at home Vitals Vital Signs Date Time Temp Pulse Resp B/P (MAP) Pulse Ox O2 Delivery O2 Flow Rate FiO2 08/01/20 09:05 97 117/82 08/01/20 07:00 95.7 18 93 Nasal Cannula 3.0 95.7 Comments on no distress NC AT RRR no accessory muscle use obese no rash Labs Laboratory Tests Test 07/31/20 02:00 07/31/20 07:20 07/31/20 08:20 07/31/20 09:30 White Blood Count 11.4 x10^3/uL (4.0-11.0) Red Blood Count 4.77 x10^6/uL (3.50-5.40) Hemoglobin 13.8 g/dL (12.0-15.5) Hematocrit 42.4 % (36.0-47.0) Mean Corpuscular Volume 89 fL (79-100) Mean Corpuscular Hemoglobin 29 pg (25-35) Mean Corpuscular Hemoglobin Concent 33 g/dL (31-37) Red Cell Distribution Width 16.9 % (11.5-14.5) Platelet Count 188 x10^3/uL (140-400) Neutrophils (%) (Auto) 79 % (31-73) Lymphocytes (%) (Auto) 11 % (24-48) Monocytes (%) (Auto) 9 % (0-9) Eosinophils (%) (Auto) 0 % (0-3) Basophils (%) (Auto) 0 % (0-3) Neutrophils # (Auto) 9.1 x10^3/uL (1.8-7.7) Lymphocytes # (Auto) 1.2 x10^3/uL (1.0-4.8) Monocytes # (Auto) 1.1 x10^3/uL (0.0-1.1) Eosinophils # (Auto) 0.0 x10^3/uL (0.0-0.7) Basophils # (Auto) 0.0 x10^3/uL (0.0-0.2) D-Dimer (Tiarra) 3.84 ug/mlFEU (0.00-0.50) Sodium Level 138 mmol/L (136-145) Potassium Level 3.1 mmol/L (3.5-5.1) Chloride Level 100 mmol/L (98-107) Carbon Dioxide Level 26 mmol/L (21-32) Anion Gap 12 (6-14) Blood Urea Nitrogen 15 mg/dL (7-20) Creatinine 1.0 mg/dL (0.6-1.0) Estimated GFR (Cockcroft-Gault) 56.6 BUN/Creatinine Ratio 15 (6-20) Glucose Level 115 mg/dL (70-99) Calcium Level 8.1 mg/dL (8.5-10.1) Magnesium Level 1.8 mg/dL (1.8-2.4) Total Bilirubin 1.5 mg/dL (0.2-1.0) Aspartate Amino Transf (AST/SGOT) 42 U/L (15-37) Alanine Aminotransferase (ALT/SGPT) 47 U/L (14-59) Alkaline Phosphatase 173 U/L (46-116) Troponin I Quantitative 0.069 ng/mL (0.000-0.055) 0.062 ng/mL (0.000-0.055) IW-Gil-R-Type Natriuretic Peptide 4809 pg/mL (0-124) Total Protein 6.5 g/dL (6.4-8.2) Albumin 2.8 g/dL (3.4-5.0) Albumin/Globulin Ratio 0.8 (1.0-1.7) Lipase 52 U/L (73-393) Procalcitonin 0.25 ng/mL (0.00-0.10) Influenza Type A Antigen Negative (NEGATIVE) Influenza Type B Antigen Negative (NEGATIVE) SARS-CoV-2 Antigen (Rapid) Negative (NEGATIVE) Test 07/31/20 11:00 07/31/20 13:15 08/01/20 04:30 Troponin I Quantitative 0.060 ng/mL (0.000-0.055) Urine Opiates Screen Neg (NEG) Urine Methadone Screen Neg (NEG) Urine Barbiturates Neg (NEG) Urine Phencyclidine Screen Neg (NEG) Urine Amphetamine/Methamphetamine Pos (NEG) Urine Benzodiazepines Screen Neg (NEG) Urine Cocaine Screen Neg (NEG) Urine Cannabinoids Screen Neg (NEG) Urine Ethyl Alcohol Neg (NEG) White Blood Count 8.0 x10^3/uL (4.0-11.0) Red Blood Count 4.67 x10^6/uL (3.50-5.40) Hemoglobin 13.4 g/dL (12.0-15.5) Hematocrit 41.5 % (36.0-47.0) Mean Corpuscular Volume 89 fL (79-100) Mean Corpuscular Hemoglobin 29 pg (25-35) Mean Corpuscular Hemoglobin Concent 32 g/dL (31-37) Red Cell Distribution Width 16.3 % (11.5-14.5) Platelet Count 194 x10^3/uL (140-400) Neutrophils (%) (Auto) 74 % (31-73) Lymphocytes (%) (Auto) 17 % (24-48) Monocytes (%) (Auto) 9 % (0-9) Eosinophils (%) (Auto) 0 % (0-3) Basophils (%) (Auto) 0 % (0-3) Neutrophils # (Auto) 5.9 x10^3/uL (1.8-7.7) Lymphocytes # (Auto) 1.3 x10^3/uL (1.0-4.8) Monocytes # (Auto) 0.7 x10^3/uL (0.0-1.1) Eosinophils # (Auto) 0.0 x10^3/uL (0.0-0.7) Basophils # (Auto) 0.0 x10^3/uL (0.0-0.2) Sodium Level 137 mmol/L (136-145) Potassium Level 3.3 mmol/L (3.5-5.1) Chloride Level 101 mmol/L (98-107) Carbon Dioxide Level 28 mmol/L (21-32) Anion Gap 8 (6-14) Blood Urea Nitrogen 18 mg/dL (7-20) Creatinine 1.2 mg/dL (0.6-1.0) Estimated GFR (Cockcroft-Gault) 45.8 Glucose Level 128 mg/dL (70-99) Calcium Level 8.1 mg/dL (8.5-10.1) Magnesium Level 2.0 mg/dL (1.8-2.4) Laboratory Tests Test 07/31/20 13:15 08/01/20 04:30 Urine Opiates Screen Neg (NEG) Urine Methadone Screen Neg (NEG) Urine Barbiturates Neg (NEG) Urine Phencyclidine Screen Neg (NEG) Urine Amphetamine/Methamphetamine Pos (NEG) Urine Benzodiazepines Screen Neg (NEG) Urine Cocaine Screen Neg (NEG) Urine Cannabinoids Screen Neg (NEG) Urine Ethyl Alcohol Neg (NEG) White Blood Count 8.0 x10^3/uL (4.0-11.0) Red Blood Count 4.67 x10^6/uL (3.50-5.40) Hemoglobin 13.4 g/dL (12.0-15.5) Hematocrit 41.5 % (36.0-47.0) Mean Corpuscular Volume 89 fL (79-100) Mean Corpuscular Hemoglobin 29 pg (25-35) Mean Corpuscular Hemoglobin Concent 32 g/dL (31-37) Red Cell Distribution Width 16.3 % (11.5-14.5) Platelet Count 194 x10^3/uL (140-400) Neutrophils (%) (Auto) 74 % (31-73) Lymphocytes (%) (Auto) 17 % (24-48) Monocytes (%) (Auto) 9 % (0-9) Eosinophils (%) (Auto) 0 % (0-3) Basophils (%) (Auto) 0 % (0-3) Neutrophils # (Auto) 5.9 x10^3/uL (1.8-7.7) Lymphocytes # (Auto) 1.3 x10^3/uL (1.0-4.8) Monocytes # (Auto) 0.7 x10^3/uL (0.0-1.1) Eosinophils # (Auto) 0.0 x10^3/uL (0.0-0.7) Basophils # (Auto) 0.0 x10^3/uL (0.0-0.2) Sodium Level 137 mmol/L (136-145) Potassium Level 3.3 mmol/L (3.5-5.1) Chloride Level 101 mmol/L (98-107) Carbon Dioxide Level 28 mmol/L (21-32) Anion Gap 8 (6-14) Blood Urea Nitrogen 18 mg/dL (7-20) Creatinine 1.2 mg/dL (0.6-1.0) Estimated GFR (Cockcroft-Gault) 45.8 Glucose Level 128 mg/dL (70-99) Calcium Level 8.1 mg/dL (8.5-10.1) Magnesium Level 2.0 mg/dL (1.8-2.4) Medications Active Scripts Medications Dose Route/Sig Max Daily Dose Days Date Category Lisinopril 5 Mg Tablet 5 Mg PO DAILY 04/01/20 Reported Famotidine 20 Mg Tablet 20 Mg PO BID 03/11/20 Reported Aspirin 81 Mg Tab.chew 81 Mg PO DAILY 03/11/20 Reported Atorvastatin Calcium 20 Mg Tablet 20 Mg PO HS 03/11/20 Reported Spironolactone 25 Mg Tablet 25 Mg PO BID 03/11/20 Reported Furosemide 40 Mg Tablet 40 Mg PO BID 03/11/20 Reported Potassium Chloride 8 Meq Capsule.er 16 Meq PO BID 03/11/20 Reported [adempas] 2.5 Mg PO TID 03/11/20 Reported Impression . IMPRESSION: 1. Acute on chronic respiratory failure, multifactorial in etiology, including pulmonary embolism, acute exacerbation of chronic obstructive pulmonary disease, acute bronchitis, acute diastolic congestive heart failure. 2. Abnormal CT of the chest. 3. Pulmonary embolism. 4. Acute exacerbation of chronic obstructive pulmonary disease. 5. Smoker. 6. History of pulmonary embolism. 7. History of colon cancer status post resection. 8. COVID-19 person under investigation. 9. Hypokalemia. 10. Obesity, obstructive sleep apnea-hypopnea syndrome. Plan . PLAN AND RECOMMENDATIONS: 1. Titrate FiO2 to keep O2 saturation 92%. 2. Continue prednisone. 3. Continue with doxycycline. 4. Agree with Lovenox 1 mg/kg every 12 hours. 5. Pepcid for stress ulcer prophylaxis. 6. Follow up COVID-19 testing. 7. Replace potassium. 8. This is her second pulmonary embolism, she will require lifelong anticoagulation. 9. echo if covid19 neg 10. the importance of martha tx discussed advised to use cpap during sleep discussed w pt, rn ALE WAHL MD Aug 01, 2020 11:03
[2020-08-01] MEDS: LACTOBACILLUS RHAMNOSUS GG 1 CAPSULE. PO SCH ×2 (12:13→20:49)
--- NOTE | 2020-08-01 12:15 | PDOC ---
PROGRESS NOTES Date of Service DATE: 08/01/20 TIME: 12:14 Subjective Subjective Patient seen and examined Objective Objective Vital Signs Date Time Temp Pulse Resp B/P (MAP) Pulse Ox O2 Delivery O2 Flow Rate FiO2 08/01/20 11:00 95.9 103 22 120/78 (92) 93 Nasal Cannula 3.0 95.9 Intake and Output 08/01/20 07:00 Intake Total 1260 ml Output Total 800 ml Balance 460 ml Intake Oral 1260 ml Output Urine Total 800 ml # Voids 1 Physical Exam Abdomen: Normal bowel sounds Heart: Regular rate General: mild distress Lungs: Other (Slightly decreased breath sounds) Assessment Assessment Problems Medical Problems: (1) CHF exacerbation Status: Acute 1. Pulmonary emboli. Positive CTA scan as above. Patient has been started on full dose Lovenox. Feeling better today. Echo pending. 2. Congestive heart failure. Mild diuresis as tolerated with monitoring of potassium. Feeling better. Morning potassium 3.3. 3. History of pulmonary hypertension. Echo as above. Continue treatment of underlying pulmonary emboli. 4. History of colon cancer. 5. Hypokalemia. Replace and monitor. Comment Review of Relevant I have reviewed the following items chavo (where applicable) has been applied. Labs Laboratory Tests Test 07/31/20 02:00 07/31/20 07:20 07/31/20 08:20 07/31/20 09:30 White Blood Count 11.4 x10^3/uL (4.0-11.0) Red Blood Count 4.77 x10^6/uL (3.50-5.40) Hemoglobin 13.8 g/dL (12.0-15.5) Hematocrit 42.4 % (36.0-47.0) Mean Corpuscular Volume 89 fL (79-100) Mean Corpuscular Hemoglobin 29 pg (25-35) Mean Corpuscular Hemoglobin Concent 33 g/dL (31-37) Red Cell Distribution Width 16.9 % (11.5-14.5) Platelet Count 188 x10^3/uL (140-400) Neutrophils (%) (Auto) 79 % (31-73) Lymphocytes (%) (Auto) 11 % (24-48) Monocytes (%) (Auto) 9 % (0-9) Eosinophils (%) (Auto) 0 % (0-3) Basophils (%) (Auto) 0 % (0-3) Neutrophils # (Auto) 9.1 x10^3/uL (1.8-7.7) Lymphocytes # (Auto) 1.2 x10^3/uL (1.0-4.8) Monocytes # (Auto) 1.1 x10^3/uL (0.0-1.1) Eosinophils # (Auto) 0.0 x10^3/uL (0.0-0.7) Basophils # (Auto) 0.0 x10^3/uL (0.0-0.2) D-Dimer (Tiarra) 3.84 ug/mlFEU (0.00-0.50) Sodium Level 138 mmol/L (136-145) Potassium Level 3.1 mmol/L (3.5-5.1) Chloride Level 100 mmol/L (98-107) Carbon Dioxide Level 26 mmol/L (21-32) Anion Gap 12 (6-14) Blood Urea Nitrogen 15 mg/dL (7-20) Creatinine 1.0 mg/dL (0.6-1.0) Estimated GFR (Cockcroft-Gault) 56.6 BUN/Creatinine Ratio 15 (6-20) Glucose Level 115 mg/dL (70-99) Calcium Level 8.1 mg/dL (8.5-10.1) Magnesium Level 1.8 mg/dL (1.8-2.4) Total Bilirubin 1.5 mg/dL (0.2-1.0) Aspartate Amino Transf (AST/SGOT) 42 U/L (15-37) Alanine Aminotransferase (ALT/SGPT) 47 U/L (14-59) Alkaline Phosphatase 173 U/L (46-116) Troponin I Quantitative 0.069 ng/mL (0.000-0.055) 0.062 ng/mL (0.000-0.055) AU-Uiy-A-Type Natriuretic Peptide 4809 pg/mL (0-124) Total Protein 6.5 g/dL (6.4-8.2) Albumin 2.8 g/dL (3.4-5.0) Albumin/Globulin Ratio 0.8 (1.0-1.7) Lipase 52 U/L (73-393) Procalcitonin 0.25 ng/mL (0.00-0.10) Influenza Type A Antigen Negative (NEGATIVE) Influenza Type B Antigen Negative (NEGATIVE) SARS-CoV-2 Antigen (Rapid) Negative (NEGATIVE) Test 07/31/20 11:00 07/31/20 13:15 08/01/20 04:30 Troponin I Quantitative 0.060 ng/mL (0.000-0.055) Urine Opiates Screen Neg (NEG) Urine Methadone Screen Neg (NEG) Urine Barbiturates Neg (NEG) Urine Phencyclidine Screen Neg (NEG) Urine Amphetamine/Methamphetamine Pos (NEG) Urine Benzodiazepines Screen Neg (NEG) Urine Cocaine Screen Neg (NEG) Urine Cannabinoids Screen Neg (NEG) Urine Ethyl Alcohol Neg (NEG) White Blood Count 8.0 x10^3/uL (4.0-11.0) Red Blood Count 4.67 x10^6/uL (3.50-5.40) Hemoglobin 13.4 g/dL (12.0-15.5) Hematocrit 41.5 % (36.0-47.0) Mean Corpuscular Volume 89 fL (79-100) Mean Corpuscular Hemoglobin 29 pg (25-35) Mean Corpuscular Hemoglobin Concent 32 g/dL (31-37) Red Cell Distribution Width 16.3 % (11.5-14.5) Platelet Count 194 x10^3/uL (140-400) Neutrophils (%) (Auto) 74 % (31-73) Lymphocytes (%) (Auto) 17 % (24-48) Monocytes (%) (Auto) 9 % (0-9) Eosinophils (%) (Auto) 0 % (0-3) Basophils (%) (Auto) 0 % (0-3) Neutrophils # (Auto) 5.9 x10^3/uL (1.8-7.7) Lymphocytes # (Auto) 1.3 x10^3/uL (1.0-4.8) Monocytes # (Auto) 0.7 x10^3/uL (0.0-1.1) Eosinophils # (Auto) 0.0 x10^3/uL (0.0-0.7) Basophils # (Auto) 0.0 x10^3/uL (0.0-0.2) Sodium Level 137 mmol/L (136-145) Potassium Level 3.3 mmol/L (3.5-5.1) Chloride Level 101 mmol/L (98-107) Carbon Dioxide Level 28 mmol/L (21-32) Anion Gap 8 (6-14) Blood Urea Nitrogen 18 mg/dL (7-20) Creatinine 1.2 mg/dL (0.6-1.0) Estimated GFR (Cockcroft-Gault) 45.8 Glucose Level 128 mg/dL (70-99) Calcium Level 8.1 mg/dL (8.5-10.1) Magnesium Level 2.0 mg/dL (1.8-2.4) Laboratory Tests Test 07/31/20 13:15 08/01/20 04:30 Urine Opiates Screen Neg (NEG) Urine Methadone Screen Neg (NEG) Urine Barbiturates Neg (NEG) Urine Phencyclidine Screen Neg (NEG) Urine Amphetamine/Methamphetamine Pos (NEG) Urine Benzodiazepines Screen Neg (NEG) Urine Cocaine Screen Neg (NEG) Urine Cannabinoids Screen Neg (NEG) Urine Ethyl Alcohol Neg (NEG) White Blood Count 8.0 x10^3/uL (4.0-11.0) Red Blood Count 4.67 x10^6/uL (3.50-5.40) Hemoglobin 13.4 g/dL (12.0-15.5) Hematocrit 41.5 % (36.0-47.0) Mean Corpuscular Volume 89 fL (79-100) Mean Corpuscular Hemoglobin 29 pg (25-35) Mean Corpuscular Hemoglobin Concent 32 g/dL (31-37) Red Cell Distribution Width 16.3 % (11.5-14.5) Platelet Count 194 x10^3/uL (140-400) Neutrophils (%) (Auto) 74 % (31-73) Lymphocytes (%) (Auto) 17 % (24-48) Monocytes (%) (Auto) 9 % (0-9) Eosinophils (%) (Auto) 0 % (0-3) Basophils (%) (Auto) 0 % (0-3) Neutrophils # (Auto) 5.9 x10^3/uL (1.8-7.7) Lymphocytes # (Auto) 1.3 x10^3/uL (1.0-4.8) Monocytes # (Auto) 0.7 x10^3/uL (0.0-1.1) Eosinophils # (Auto) 0.0 x10^3/uL (0.0-0.7) Basophils # (Auto) 0.0 x10^3/uL (0.0-0.2) Sodium Level 137 mmol/L (136-145) Potassium Level 3.3 mmol/L (3.5-5.1) Chloride Level 101 mmol/L (98-107) Carbon Dioxide Level 28 mmol/L (21-32) Anion Gap 8 (6-14) Blood Urea Nitrogen 18 mg/dL (7-20) Creatinine 1.2 mg/dL (0.6-1.0) Estimated GFR (Cockcroft-Gault) 45.8 Glucose Level 128 mg/dL (70-99) Calcium Level 8.1 mg/dL (8.5-10.1) Magnesium Level 2.0 mg/dL (1.8-2.4) Medications Current Medications Ondansetron HCl (Zofran) 4 mg PRN Q8HRS PRN IV NAUSEA/VOMITING; Start 07/31/20 a t 03:00; Stop 07/31/20 at 08:02; Status DC Aspirin (Aspirin Chewable) 81 mg [id number] PO Last administered on 08/01/20 09:04; Start 07/31/20 at 08:00 Atorvastatin Calcium (Lipitor) 20 mg HS PO Last administered on 07/31/20at 22:45; Start 07/31/20 at 21:00 Famotidine (Pepcid) 20 mg BID PO Last administered on 08/01/20 09:04; Start 07/31/20 at 09:00 Lisinopril (Prinivil) 5 mg DAILY PO Last administered on 08/01/20 09:05; Start 07/31/20 at 09:00 Spironolactone (Aldactone) 25 mg BID PO Last administered on 08/01/20 09:04; Start 07/31/20 at 09:00 Non-Formulary Medication ([adempas] ) 2.5 mg TID PO Last administered on 07/31/20at 12:44; Start 07/31/20 at 09:00; Stop 08/01/20 at 10:10; Status DC Furosemide (Lasix) 40 mg BID92 IVP Last administered on 08/01/20at 09:05; Start 07/31/20 at 09:00 Potassium Chloride (Klor-Con) 40 meq DAILYWBKFT PO Last administered on 08/01/20at 09:04; Start 07/31/20 at 08:00 Ondansetron HCl (Zofran) 4 mg PRN Q6HRS PRN IVP NAUSEA/VOMITING; Start 07/31/20 at 08:00 Al Hydroxide/Mg Hydroxide (Mylanta Plus Xs) 30 ml PRN Q3HRS PRN PO HEARTBURN / GAS; Start 07/31/20 at 08:00 Calcium Carbonate/ Glycine (Tums) 500 mg PRN Q3HRS PRN PO UPSET STOMACH; Start 07/31/20 at 08:00 Morphine Sulfate (Morphine Sulfate) 2 mg PRN Q1HR PRN IV PAIN; Start 07/31/20 at 08:00 Acetaminophen (Tylenol) 650 mg PRN Q6HRS PRN PO Headaches, Temp > 101.5F; Start 07/31/20 at 08:00 Magnesium Hydroxide (Milk Of Magnesia) 2,400 mg PRN Q12HR PRN PO CONSTIPATION; Start 07/31/20 at 08:00 Bisacodyl (Dulcolax Supp) 10 mg PRN DAILY PRN [place] CONSTIPATION; Start 07/31/20 at 08:00 Enoxaparin Sodium (Lovenox 40mg Syringe) 40 mg Q12HR SQ Last administered on 07/31/20at 08:24; Start 07/31/20 at 09:00; Stop 07/31/20 at 10:49; Status DC Iohexol (Omnipaque 350 Mg/ml) 100 ml STK-MED ONCE .ROUTE ; Start 07/31/20 at 08:44; Stop 07/31/20 at 08:45; Status DC Enoxaparin Sodium (Lovenox Per Pharmacy Treatment Dosing) 1 each BID PRN MC SEE COMMENTS; Start 07/31/20 at 10:15 Nicotine (Nicoderm Cq 21mg) 1 patch PRN DAILY PRN TD SMOKING CESSATION; Start 07/31/20 at 10:45 Enoxaparin Sodium (Lovenox 80mg Syringe) 80 mg 1X ONCE SQ Last administered on 07/31/20at 11:02; Start 07/31/20 at 11:00; Stop 07/31/20 at 11:02; Status DC Enoxaparin Sodium (Lovenox 120mg Syringe) 120 mg Q12HR SQ Last administered on 08/01/20at 09:04; Start 07/31/20 at 21:00 Doxycycline Hyclate 100 mg/ Dextrose 100 ml @ 50 mls/hr Q12HR IV Last administered on 08/01/20at 09:08; Start 07/31/20 at 11:00; Stop 08/05/20 at 10:59 Prednisone (Prednisone) 40 mg DAILY PO Last administered on 08/01/20at 09:05; Start 07/31/20 at 11:00; Stop 08/06/20 at 10:59 Fluticasone/ Vilanterol (Breo Ellipta 100-25 Mcg) 1 puff DAILY INH Last administered on 08/01/20at 09:07; Start 08/01/20 at 09:00 Non-Formulary Medication ([adempas] ) 1 mg TID PO ; Start 08/01/20 at 10:10 Lactobacillus Rhamnosus (Culturelle) 1 cap BID PO ; Start 08/01/20 at 12:00 Active Scripts Active Reported Lisinopril 5 Mg Tablet 5 Mg PO DAILY Famotidine 20 Mg Tablet 20 Mg PO BID Aspirin 81 Mg Tab.chew 81 Mg PO DAILY Atorvastatin Calcium 20 Mg Tablet 20 Mg PO HS Spironolactone 25 Mg Tablet 25 Mg PO BID Furosemide 40 Mg Tablet 40 Mg PO BID Potassium Chloride 8 Meq Capsule.er 16 Meq PO BID [adempas] 2.5 Mg PO TID Vitals/I & O Vital Sign - Last 24 Hours 07/31/20 07/31/20 07/31/20 08/01/20 15:00 19:00 20:00 03:00 Temp 98.3 98.6 97.0 98.3 98.6 97.0 Pulse 114 112 104 Resp 22 20 19 B/P (MAP) 118/71 (87) 116/79 (91) 118/75 (89) Pulse Ox 90 90 93 O2 Delivery Nasal Cannula Room Air Nasal Cannula Nasal Cannula O2 Flow Rate 2.0 2.0 3.0 3.0 08/01/20 08/01/20 08/01/20 07:00 09:05 11:00 Temp 95.7 95.9 95.7 95.9 Pulse 97 97 103 Resp 18 22 B/P (MAP) 117/82 (94) 117/82 120/78 (92) Pulse Ox 93 93 O2 Delivery Nasal Cannula Nasal Cannula O2 Flow Rate 3.0 3.0 Intake and Output 07/31/20 07/31/20 08/01/20 15:00 23:00 07:00 Intake Total 540 ml 240 ml 480 ml Output Total 800 ml Balance 540 ml 240 ml -320 ml Justifications for Admission Other Justification Acute CHF exacerbation, acute COPD DUSTY MENDOZA MD Aug 01, 2020 12:15
--- NOTE | 2020-08-01 13:36 | PDOC ---
[employer] PROGRESS NOTE Date of Service DOS: DATE: 08/01/20 TIME: 13:34 Chief Complaint Chief Complaint acute hypoxic respirtory failure new pumonary embolism, on treatment lovenox Acute CHF exacerbation Elevated troponin Elevated D-dimer Hypokalemia Malnutrition, moderate Obesity, BMI 40 COVID-19 PUI, prior recovered, months ago, Plan: History of Present Illness History of Present Illness tearful and emotional mult times, will need [place] team follow up at [place], adjustment disorder and active grief that she has been self medicating with METH, cessation discussed LEg swelling is better still weakness and shortness of breath wean 02 as able Vitals/I&O Vitals/I&O: Vital Signs Date Time Temp Pulse Resp B/P (MAP) Pulse Ox O2 Delivery O2 Flow Rate FiO2 08/01/20 11:00 95.9 103 22 120/78 (92) 93 Nasal Cannula 3.0 95.9 I & O 07/31/20 07/31/20 08/01/20 15:00 23:00 07:00 Intake Total 540 ml 240 ml 480 ml Output Total 800 ml Balance 540 ml 240 ml -320 ml Physical Exam General: Alert, Oriented X3, Cooperative, mild distress Heart: Regular rate Abdomen: Normal bowel sounds Extremities: No clubbing, No cyanosis Skin: No breakdown Labs Labs: Laboratory Tests Test 08/01/20 04:30 White Blood Count 8.0 x10^3/uL (4.0-11.0) Red Blood Count 4.67 x10^6/uL (3.50-5.40) Hemoglobin 13.4 g/dL (12.0-15.5) Hematocrit 41.5 % (36.0-47.0) Mean Corpuscular Volume 89 fL (79-100) Mean Corpuscular Hemoglobin 29 pg (25-35) Mean Corpuscular Hemoglobin Concent 32 g/dL (31-37) Red Cell Distribution Width 16.3 % (11.5-14.5) Platelet Count 194 x10^3/uL (140-400) Neutrophils (%) (Auto) 74 % (31-73) Lymphocytes (%) (Auto) 17 % (24-48) Monocytes (%) (Auto) 9 % (0-9) Eosinophils (%) (Auto) 0 % (0-3) Basophils (%) (Auto) 0 % (0-3) Neutrophils # (Auto) 5.9 x10^3/uL (1.8-7.7) Lymphocytes # (Auto) 1.3 x10^3/uL (1.0-4.8) Monocytes # (Auto) 0.7 x10^3/uL (0.0-1.1) Eosinophils # (Auto) 0.0 x10^3/uL (0.0-0.7) Basophils # (Auto) 0.0 x10^3/uL (0.0-0.2) Sodium Level 137 mmol/L (136-145) Potassium Level 3.3 mmol/L (3.5-5.1) Chloride Level 101 mmol/L (98-107) Carbon Dioxide Level 28 mmol/L (21-32) Anion Gap 8 (6-14) Blood Urea Nitrogen 18 mg/dL (7-20) Creatinine 1.2 mg/dL (0.6-1.0) Estimated GFR (Cockcroft-Gault) 45.8 Glucose Level 128 mg/dL (70-99) Calcium Level 8.1 mg/dL (8.5-10.1) Magnesium Level 2.0 mg/dL (1.8-2.4) Review of Systems Review of Systems: shortness of breath, tearful her appetite is much better, she got 2 trays for lunch Assessment and Plan Assessmemt and Plan Problems Medical Problems: (1) CHF exacerbation Status: Acute Comment Review of Relevant I have reviewed the following items chavo (where applicable) has been applied. Medications: Current Medications Medications (Trade) Dose Ordered Sig/Betty Route PRN Reason Start Time Stop Time Status Last Admin Dose Admin Atorvastatin Calcium (Lipitor) 20 mg HS PO 07/31/20 21:00 07/31/20 22:45 Enoxaparin Sodium (Lovenox 120mg Syringe) 120 mg Q12HR SQ 07/31/20 21:00 08/01/20 09:04 Fluticasone/ Vilanterol (Breo Ellipta 100-25 Mcg) 1 puff DAILY INH 08/01/20 09:00 08/01/20 09:07 Lactobacillus Rhamnosus (Culturelle) 1 cap BID PO 08/01/20 12:00 08/01/20 12:13 Justifications for Admission Other Justification Acute CHF exacerbation, acute COPD JUDAH WYATT MD 7, 2021 13:36
[2020-08-01] MEDS: ADEMPAS 1 MG PO SCH ×2 (14:17→23:25)
[2020-08-01] MEDS ORDERED: RIOC1TAB PO (14:50)
[2020-08-01 15:00] VITALS: BP 114/73
[2020-08-01 19:00] VITALS: BP 126/86
[2020-08-01] MEDS: ATORVASTATIN CALCIUM 20 MG TABLET PO SCH (20:49)
[2020-08-01] MEDS: MORPHINE SULFATE 2 MG/ML VIAL. IV PRN ×2 (20:52→23:26)
--- NOTE | 2020-08-01 21:00 | NUR ---
Patient has >10 beat run of pvc's, when checking on patient, she says her abdomen has been hurting, this senior medical writer asked her if she may be having any sort of withdrawal issues, she denies, informed her urine positive for meth, patient boldly states, "I'm not going to stop either...when I get out of here, the first thing I'm going to do is some meth...It's the only thing that helps me with my anxiety... and losing my sister six months ago to covid...". patient is being further monitored.
[2020-08-01 23:00] VITALS: BP 136/86
[2020-08-02 03:00] VITALS: BP 148/60
[2020-08-02 07:00] VITALS: BP 138/82
[2020-08-02] MEDS: LACTOBACILLUS RHAMNOSUS GG 1 CAPSULE. PO SCH ×2 (09:06→21:46)
[2020-08-02] MEDS: POTASSIUM CHLORIDE 20 MEQ TABLET.ER. PO SCH (09:07)
[2020-08-02] MEDS: ASPIRIN CHEWABLE 81 MG TABLET. PO SCH (09:07)
[2020-08-02] MEDS: predniSONE 20 MG TABLET PO SCH (09:07)
[2020-08-02] MEDS: FAMOTIDINE 20 MG TABLET. PO SCH ×2 (09:07→21:46)
[2020-08-02] MEDS: SPIRONOLACTONE 25 MG TABLET PO SCH ×2 (09:08→21:46)
[2020-08-02] MEDS: ADEMPAS 1 MG PO SCH ×3 (09:08→21:48)
[2020-08-02] MEDS: FUROSEMIDE 40 MG/4 ML VIAL. IVP SCH (09:08)
[2020-08-02] MEDS: FLUTICASONE/VILANTEROL 100/25 INHALER. INH SCH (09:08)
[2020-08-02] MEDS: LISINOPRIL 5 MG TABLET. PO SCH (09:09)
--- NOTE | 2020-08-02 09:45 | PDOC ---
PULMONARY PROGRESS NOTES DATE: 08/02/20 TIME: 09:44 Subjective Patient at times still short of air. Vitals Vital Signs Date Time Temp Pulse Resp B/P (MAP) Pulse Ox O2 Delivery O2 Flow Rate FiO2 08/02/20 09:09 103 138/82 08/02/20 07:00 97.8 19 95 Nasal Cannula 2.0 97.8 ROS: No Nausea, No Chest Pain, No Abdominal Pain, No Increase Cough Lungs: Clear Cardiovascular: S1, S2 Abdomen: Soft Neuro Exam: Alert Extremities: No Edema Skin: Warm Labs Laboratory Tests Test 07/31/20 11:00 07/31/20 13:15 08/01/20 04:30 Troponin I Quantitative 0.060 ng/mL (0.000-0.055) Urine Opiates Screen Neg (NEG) Urine Methadone Screen Neg (NEG) Urine Barbiturates Neg (NEG) Urine Phencyclidine Screen Neg (NEG) Urine Amphetamine/Methamphetamine Pos (NEG) Urine Benzodiazepines Screen Neg (NEG) Urine Cocaine Screen Neg (NEG) Urine Cannabinoids Screen Neg (NEG) Urine Ethyl Alcohol Neg (NEG) White Blood Count 8.0 x10^3/uL (4.0-11.0) Red Blood Count 4.67 x10^6/uL (3.50-5.40) Hemoglobin 13.4 g/dL (12.0-15.5) Hematocrit 41.5 % (36.0-47.0) Mean Corpuscular Volume 89 fL (79-100) Mean Corpuscular Hemoglobin 29 pg (25-35) Mean Corpuscular Hemoglobin Concent 32 g/dL (31-37) Red Cell Distribution Width 16.3 % (11.5-14.5) Platelet Count 194 x10^3/uL (140-400) Neutrophils (%) (Auto) 74 % (31-73) Lymphocytes (%) (Auto) 17 % (24-48) Monocytes (%) (Auto) 9 % (0-9) Eosinophils (%) (Auto) 0 % (0-3) Basophils (%) (Auto) 0 % (0-3) Neutrophils # (Auto) 5.9 x10^3/uL (1.8-7.7) Lymphocytes # (Auto) 1.3 x10^3/uL (1.0-4.8) Monocytes # (Auto) 0.7 x10^3/uL (0.0-1.1) Eosinophils # (Auto) 0.0 x10^3/uL (0.0-0.7) Basophils # (Auto) 0.0 x10^3/uL (0.0-0.2) Sodium Level 137 mmol/L (136-145) Potassium Level 3.3 mmol/L (3.5-5.1) Chloride Level 101 mmol/L (98-107) Carbon Dioxide Level 28 mmol/L (21-32) Anion Gap 8 (6-14) Blood Urea Nitrogen 18 mg/dL (7-20) Creatinine 1.2 mg/dL (0.6-1.0) Estimated GFR (Cockcroft-Gault) 45.8 Glucose Level 128 mg/dL (70-99) Calcium Level 8.1 mg/dL (8.5-10.1) Magnesium Level 2.0 mg/dL (1.8-2.4) Medications Active Scripts Medications Dose Route/Sig Max Daily Dose Days Date Category Lisinopril 5 Mg Tablet 5 Mg PO DAILY 04/01/20 Reported Famotidine 20 Mg Tablet 20 Mg PO BID 03/11/20 Reported Aspirin 81 Mg Tab.chew 81 Mg PO DAILY 03/11/20 Reported Atorvastatin Calcium 20 Mg Tablet 20 Mg PO HS 03/11/20 Reported Spironolactone 25 Mg Tablet 25 Mg PO BID 03/11/20 Reported Furosemide 40 Mg Tablet 40 Mg PO BID 03/11/20 Reported Potassium Chloride 8 Meq Capsule.er 16 Meq PO BID 03/11/20 Reported [adempas] 2.5 Mg PO TID 03/11/20 Reported Impression . IMPRESSION: 1. Acute on chronic respiratory failure, multifactorial in etiology, including pulmonary embolism, acute exacerbation of chronic obstructive pulmonary disease, acute bronchitis, acute diastolic congestive heart failure. 2. Abnormal CT of the chest. 3. Pulmonary embolism. 4. Acute exacerbation of chronic obstructive pulmonary disease. 5. Smoker. 6. History of pulmonary embolism. 7. History of colon cancer status post resection. 8. COVID-19 negative 9. Hypokalemia. 10. Obesity, obstructive sleep apnea-hypopnea syndrome. Plan . Continue oxygen supplementation Anticoagulation Prednisone and doxycycline Lifetime anticoagulation Discontinue tobacco use. KAMERON CARR MD Aug 02, 2020 09:44
[2020-08-02] MEDS: DOXYCYCLINE HYCLATE 100 MG in IV DEXTROSE 5% 100ML 100 ML IV SCH ×2 (10:40→21:45)
[2020-08-02 10:58] LABS: CALCIUM 8.3 mg/dL (8.5-10.1); CREATININE 1.2 mg/dL (0.6-1.0); GFR 45.8; POTASSIUM 3.2 mmol/L (3.5-5.1)
[2020-08-02 11:00] VITALS: BP 150/94
--- NOTE | 2020-08-02 12:01 | PDOC ---
PROGRESS NOTES Date of Service DATE: 08/02/20 TIME: 11:59 Subjective Subjective Patient seen and examined Objective Objective Vital Signs Date Time Temp Pulse Resp B/P (MAP) Pulse Ox O2 Delivery O2 Flow Rate FiO2 08/02/20 11:00 98.1 96 18 150/94 (112) 92 Room Air 4.0 98.1 Intake and Output 08/02/20 07:00 Intake Total 820 ml Balance 820 ml Intake Oral 720 ml IV Total 100 ml # Voids 1 Physical Exam Abdomen: Normal bowel sounds Heart: Regular rate General: mild distress Lungs: Other (Slightly decreased breath sounds) Assessment Assessment Problems Medical Problems: (1) CHF exacerbation Status: Acute 1. Pulmonary emboli. Positive CTA scan as above. Patient has been started on full dose Lovenox. Feeling better today. Echo pending. 2. Congestive heart failure. Mild diuresis as tolerated with monitoring of potassium. Feeling better. Morning potassium still low at 3.2. Creatinine of 1.2. 3. History of pulmonary hypertension. Echo as above. Continue treatment of underlying pulmonary emboli. 4. History of colon cancer. 5. Hypokalemia. Replace and monitor. Comment Review of Relevant I have reviewed the following items cahvo (where applicable) has been applied. Labs Laboratory Tests Test 07/31/20 13:15 08/01/20 04:30 08/02/20 10:10 Urine Opiates Screen Neg (NEG) Urine Methadone Screen Neg (NEG) Urine Barbiturates Neg (NEG) Urine Phencyclidine Screen Neg (NEG) Urine Amphetamine/Methamphetamine Pos (NEG) Urine Benzodiazepines Screen Neg (NEG) Urine Cocaine Screen Neg (NEG) Urine Cannabinoids Screen Neg (NEG) Urine Ethyl Alcohol Neg (NEG) White Blood Count 8.0 x10^3/uL (4.0-11.0) Red Blood Count 4.67 x10^6/uL (3.50-5.40) Hemoglobin 13.4 g/dL (12.0-15.5) Hematocrit 41.5 % (36.0-47.0) Mean Corpuscular Volume 89 fL (79-100) Mean Corpuscular Hemoglobin 29 pg (25-35) Mean Corpuscular Hemoglobin Concent 32 g/dL (31-37) Red Cell Distribution Width 16.3 % (11.5-14.5) Platelet Count 194 x10^3/uL (140-400) Neutrophils (%) (Auto) 74 % (31-73) Lymphocytes (%) (Auto) 17 % (24-48) Monocytes (%) (Auto) 9 % (0-9) Eosinophils (%) (Auto) 0 % (0-3) Basophils (%) (Auto) 0 % (0-3) Neutrophils # (Auto) 5.9 x10^3/uL (1.8-7.7) Lymphocytes # (Auto) 1.3 x10^3/uL (1.0-4.8) Monocytes # (Auto) 0.7 x10^3/uL (0.0-1.1) Eosinophils # (Auto) 0.0 x10^3/uL (0.0-0.7) Basophils # (Auto) 0.0 x10^3/uL (0.0-0.2) Sodium Level 137 mmol/L (136-145) 139 mmol/L (136-145) Potassium Level 3.3 mmol/L (3.5-5.1) 3.2 mmol/L (3.5-5.1) Chloride Level 101 mmol/L (98-107) 103 mmol/L (98-107) Carbon Dioxide Level 28 mmol/L (21-32) 30 mmol/L (21-32) Anion Gap 8 (6-14) 6 (6-14) Blood Urea Nitrogen 18 mg/dL (7-20) 20 mg/dL (7-20) Creatinine 1.2 mg/dL (0.6-1.0) 1.2 mg/dL (0.6-1.0) Estimated GFR (Cockcroft-Gault) 45.8 45.8 Glucose Level 128 mg/dL (70-99) 108 mg/dL (70-99) Calcium Level 8.1 mg/dL (8.5-10.1) 8.3 mg/dL (8.5-10.1) Magnesium Level 2.0 mg/dL (1.8-2.4) Laboratory Tests Test 08/02/20 10:10 Sodium Level 139 mmol/L (136-145) Potassium Level 3.2 mmol/L (3.5-5.1) Chloride Level 103 mmol/L (98-107) Carbon Dioxide Level 30 mmol/L (21-32) Anion Gap 6 (6-14) Blood Urea Nitrogen 20 mg/dL (7-20) Creatinine 1.2 mg/dL (0.6-1.0) Estimated GFR (Cockcroft-Gault) 45.8 Glucose Level 108 mg/dL (70-99) Calcium Level 8.3 mg/dL (8.5-10.1) Medications Current Medications Ondansetron HCl (Zofran) 4 mg PRN Q8HRS PRN IV NAUSEA/VOMITING; Start 07/31/20 at 03:00; Stop 07/31/20 at 08:02; Status DC Aspirin (Aspirin Chewable) 81 mg DAILYWBKFT PO Last administered on 08/02/20 09:07; Start 07/31/20 at 08:00 Atorvastatin Calcium (Lipitor) 20 mg HS PO Last administered on 08/01/20at 20:49; Start 07/31/20 at 21:00 Famotidine (Pepcid) 20 mg BID PO Last administered on 08/02/20 09:07; Start 07/31/20 at 09:00 Lisinopril (Prinivil) 5 mg DAILY PO Last administered on 08/02/20 09:09; Start 07/31/20 at 09:00 Spironolactone (Aldactone) 25 mg BID PO Last administered on 08/02/20 09:08; Start 07/31/20 at 09:00 Non-Formulary Medication ([adempas] ) 2.5 mg TID PO Last administered on 07/31/20at 12:44; Start 07/31/20 at 09:00; Stop 08/01/20 at 10:10; Status DC Furosemide (Lasix) 40 mg BID92 IVP Last administered on 08/02/20 09:08; Start 07/31/20 at 09:00 Potassium Chloride (Klor-Con) 40 meq DAILYWBKFT PO Last administered on 08/02/20 09:07; Start 07/31/20 at 08:00 Ondansetron HCl (Zofran) 4 mg PRN Q6HRS PRN IVP NAUSEA/VOMITING; Start 07/31/20 at 08:00 Al Hydroxide/Mg Hydroxide (Mylanta Plus Xs) 30 ml PRN Q3HRS PRN PO HEARTBURN / GAS; Start 07/31/20 at 08:00 Calcium Carbonate/ Glycine (Tums) 500 mg PRN Q3HRS PRN PO UPSET STOMACH; Start 07/31/20 at 08:00 Morphine Sulfate (Morphine Sulfate) 2 mg PRN Q1HR PRN IV PAIN Last administered on 08/01/20at 23:26; Start 07/31/20 at 08:00 Acetaminophen (Tylenol) 650 mg PRN Q6HRS PRN PO Headaches, Temp > 101.5F; Start 07/31/20 at 08:00 Magnesium Hydroxide (Milk Of Magnesia) 2,400 mg PRN Q12HR PRN PO CONSTIPATION; Start 07/31/20 at 08:00 Bisacodyl (Dulcolax Supp) 10 mg PRN DAILY PRN [place] CONSTIPATION; Start 07/31/20 at 08:00 Enoxaparin Sodium (Lovenox 40mg Syringe) 40 mg Q12HR SQ Last administered on 07/31/20at 08:24; Start 07/31/20 at 09:00; Stop 07/31/20 at 10:49; Status DC Iohexol (Omnipaque 350 Mg/ml) 100 ml STK-MED ONCE .ROUTE ; Start 07/31/20 at 08:44; Stop 07/31/20 at 08:45; Status DC Enoxaparin Sodium (Lovenox Per Pharmacy Treatment Dosing) 1 each BID PRN MC SEE COMMENTS; Start 07/31/20 at 10:15 Nicotine (Nicoderm Cq 21mg) 1 patch PRN DAILY PRN TD SMOKING CESSATION; Start 07/31/20 at 10:45 Enoxaparin Sodium (Lovenox 80mg Syringe) 80 mg 1X ONCE SQ Last administered on 07/31/20at 11:02; Start 07/31/20 at 11:00; Stop 07/31/20 at 11:02; Status DC Enoxaparin Sodium (Lovenox 120mg Syringe) 120 mg Q12HR SQ Last administered on 08/02/20at 09:09; Start 07/31/20 at 21:00 Doxycycline Hyclate 100 mg/ Dextrose 100 ml @ 50 mls/hr Q12HR IV Last admini stered on 08/02/20at 10:40; Start 07/31/20 at 11:00; Stop 08/05/20 at 10:59 Prednisone (Prednisone) 40 mg DAILY PO Last administered on 08/02/20 09:07; Start 07/31/20 at 11:00; Stop 08/06/20 at 10:59 Fluticasone/ Vilanterol (Breo Ellipta 100-25 Mcg) 1 puff DAILY INH Last administered on 08/02/20 09:08; Start 08/01/20 at 09:00 Non-Formulary Medication ([adempas] ) 1 mg TID PO Last administered on 08/02/20at 09:08; Start 08/01/20 at 10:10 Lactobacillus Rhamnosus (Culturelle) 1 cap BID PO Last administered on 08/02/20 09:06; Start 08/01/20 at 12:00 Active Scripts Active Reported Adempas (Riociguat) 1 Mg Tablet 1 Mg PO TID Lisinopril 5 Mg Tablet 5 Mg PO DAILY Famotidine 20 Mg Tablet 20 Mg PO BID Aspirin 81 Mg Tab.chew 81 Mg PO DAILY Atorvastatin Calcium 20 Mg Tablet 20 Mg PO HS Spironolactone 25 Mg Tablet 25 Mg PO BID Furosemide 40 Mg Tablet 40 Mg PO BID Potassium Chloride 8 Meq Capsule.er 16 Meq PO BID Vitals/I & O Vital Sign - Last 24 Hours 08/01/20 08/01/20 08/01/20 08/01/20 15:00 19:00 20:00 20:52 Temp 96.2 97.4 96.2 97.4 Pulse 108 103 Resp 20 20 22 B/P (MAP) 114/73 (87) 126/86 (99) Pulse Ox 91 95 O2 Delivery Nasal Cannula Nasal Cannula Nasal Cannula Nasal Cannula O2 Flow Rate 3.0 2.0 3.0 2.0 08/01/20 08/01/20 08/01/20 08/01/20 21:22 23:00 23:26 23:56 Temp 97.5 97.5 Pulse 108 Resp 22 20 22 20 B/P (MAP) 136/86 (103) Pulse Ox 96 O2 Delivery Nasal Cannula Nasal Cannula Nasal Cannula Nasal Cannula O2 Flow Rate 2.0 08/02/20 08/02/20 08/02/20 08/02/20 03:00 07:00 08:00 09:09 Temp 97.3 97.8 97.3 97.8 Pulse 104 103 103 Resp 22 19 B/P (MAP) 148/60 (89) 138/82 (100) 138/82 Pulse Ox 95 95 O2 Delivery Nasal Cannula Nasal Cannula Nasal Cannula O2 Flow Rate 2.0 2.0 3.0 08/02/20 11:00 Temp 98.1 98.1 Pulse 96 Resp 18 B/P (MAP) 150/94 (112) Pulse Ox 92 O2 Delivery Room Air O2 Flow Rate 4.0 Intake and Output 08/01/20 08/01/20 08/02/20 15:00 23:00 07:00 Intake Total 240 ml 220 ml 360 ml Balance 240 ml 220 ml 360 ml Justifications for Admission Other Justification Acute CHF exacerbation, acute COPD DUSTY MENDOZA MD Aug 02, 2020 12:00
--- NOTE | 2020-08-02 12:21 | PDOC ---
[employer] PROGRESS NOTE Date of Service DOS: DATE: 08/02/20 TIME: 12:09 Chief Complaint Chief Complaint acute hypoxic respirtory failure new pumonary embolism, on treatment lovenox Acute CHF exacerbation Elevated troponin Elevated D-dimer Hypokalemia Malnutrition, moderate Obesity, BMI 40 COVID-19 PUI, prior recovered, months ago, Constipation Plan: Continue with Lovenox Continue empiric IV antibiotics Pending echocardiogram MiraLAX every 6 hours until bowel movement History of Present Illness History of Present Illness 08/02/2020 No acute events overnight. Patient is afebrile. Saturating 93% on room air without any dyspnea. Mild tachycardia from 96 to 104 bpm. Patient reports no bowel movement for at least 4 days. Patient's chart, labs, images were reviewed and discussed with RN tearchaz and emotional mult times, will need PAT team follow up at [place], adjustment disorder and active grief that she has been self medicating with METH, cessation discussed LEg swelling is better still weakness and shortness of breath wean 02 as able Vitals/I&O Vitals/I&O: Vital Signs Date Time Temp Pulse Resp B/P (MAP) Pulse Ox O2 Delivery O2 Flow Rate FiO2 08/02/20 11:00 98.1 96 18 150/94 (112) 92 Room Air 4.0 98.1 I & O 08/01/20 08/01/20 08/02/20 15:00 23:00 07:00 Intake Total 240 ml 220 ml 360 ml Balance 240 ml 220 ml 360 ml Physical Exam General: Alert, Oriented X3, Cooperative, mild distress Heart: Regular rate Abdomen: Normal bowel sounds Extremities: No clubbing, No cyanosis, Other (Bilateral pedal edema) Skin: No breakdown Labs Labs: Laboratory Tests Test 08/02/20 10:10 Sodium Level 139 mmol/L (136-145) Potassium Level 3.2 mmol/L (3.5-5.1) Chloride Level 103 mmol/L (98-107) Carbon Dioxide Level 30 mmol/L (21-32) Anion Gap 6 (6-14) Blood Urea Nitrogen 20 mg/dL (7-20) Creatinine 1.2 mg/dL (0.6-1.0) Estimated GFR (Cockcroft-Gault) 45.8 Glucose Level 108 mg/dL (70-99) Calcium Level 8.3 mg/dL (8.5-10.1) Assessment and Plan Assessmemt and Plan Problems Medical Problems: (1) CHF exacerbation Status: Acute Comment Review of Relevant I have reviewed the following items chavo (where applicable) has been applied. Justifications for Admission Other Justification Acute CHF exacerbation, acute COPD HILDA SHAH MD Aug 02, 2020 12:21
[2020-08-02] MEDS ORDERED: POTASSIUM CHLORIDE 20 MEQ TABLET.ER. PO ONE (12:30)
--- NOTE | 2020-08-02 12:57 | CARD ---
MR#: [id number] Date of Study: 08/02/2020 Ordering Physician: DUSTY NOLASCO, Referring Physician: DUSTY NOLASCO, Tech: Kailey Thompson [facility] APPROVED REPORT EXAM: Two-dimensional and M-mode echocardiogram with Doppler and color Doppler. Other Information Quality : Technically LimitedHR: 104bpm Rhythm : NSR INDICATION Dyspnea RISK FACTORS Hypertension Obesity Smoking 2D DIMENSIONS RVDd5.4 (2.9-3.5cm)Left Atrium(2D)2.9 (1.6-4.0cm) IVSd0.9 (0.7-1.1cm)Aortic Root(2D)2.7 (2.0-3.7cm) LVDd4.2 (3.9-5.9cm)LVOT Diameter2.2 (1.8-2.4cm) PWd1.0 (0.7-1.1cm)LVDs2.5 (2.5-4.0cm) FS (%) 39.8 %SV54.7 ml LVEF(%)65.0 (>50%) Aortic Valve AoV Peak Josh.129.9cm/sAoV VTI20.7cm AO Peak GR.6.8mmHgLVOT Peak Josh.95.7cm/s AO Mean GR.3mmHgAVA (VMAX)2.80cm2 Tricuspid Valve TR P. Kubdzozd027xa/sTR Peak Gr.40mmHg LEFT VENTRICLE The left ventricle is normal size. There is normal left ventricular wall thickness. The ejection frac tion is moderately impaired. Estimated ejection fraction is 35%, Paradoxic motion and flattening of s eptum consistent right ventricle volume and pressure overload. RIGHT VENTRICLE The right ventricle is moderately dilated. There is normal right ventricular wall thickness. The righ t ventricular systolic function is mildly decreased. ATRIA The left atrium size is normal. The right atrium is moderately dilated. AORTIC VALVE The aortic valve is normal in structure and function. Doppler and Color Flow revealed no significant aortic regurgitation. There is no significant aortic valvular stenosis. MITRAL VALVE The mitral valve is normal in structure and function. There is no evidence of mitral valve prolapse. There is no mitral valve stenosis. Doppler and Color-flow revealed trace mitral regurgitation. TRICUSPID VALVE The tricuspid valve is normal in structure and function. Doppler and Color Flow revealed moderate tri cuspid regurgitation. Estimated PAP 55 mmHg. There is no tricuspid valve stenosis. PULMONIC VALVE The pulmonary valve is normal in structure and function. Doppler and Color Flow revealed mild pulmoni c valvular regurgitation. GREAT VESSELS The aortic root is normal in size. The ascending aorta is normal in size. The IVC is dilated and melissa apses <50% with inspiration. PERICARDIAL EFFUSION There is no evidence of significant pericardial effusion. Critical Notification Critical Value: No <Conclusion> The left ventricle is normal size. The ejection fraction is moderately impaired. Estimated ejection fraction is 35%, Paradoxic motion and flattening of septum consistent right ventricle volume and pressure overload. Doppler and Color Flow revealed no significant aortic regurgitation. There is no significant aortic valvular stenosis. Doppler and Color-flow revealed trace mitral regurgitation. Doppler and Color Flow revealed moderate tricuspid regurgitation. Estimated PAP 55 mmHg. Signed by : Dusty Nolasco MD Electronically Approved : 08/02/2020 12:57:36
[2020-08-02] MEDS: MORPHINE SULFATE 2 MG/ML VIAL. IV PRN ×2 (13:43→22:01)
--- NOTE | 2020-08-02 13:57 | NUR ---
Nurse's Note: The patient was transferred to Rm 209 via wheelchair at 1350. She's awake, alert, oriented x 4 on 3LPM oxygen per nasal cannula; call light placed within reach.
[2020-08-02 15:00] VITALS: BP 129/87
[2020-08-02] MEDS ORDERED: ANTI-COAG MONITOR BY PHARMACY. MC PRN (15:15)
--- NOTE | 2020-08-02 16:26 | NUR ---
SW following for discharge planning. Spoke with RN and reviewed chart. Pt from home with significant other and HCBS through [place]. Pt COVID negative, 3l 02, IV doxy, cardiac diet. Pt to have echo today. Pt has home 02 and out-patient behavioral health services at [facility]. Pt transferred to . No further needs from this SW.
[2020-08-02] MEDS: POLYETHYLENE GLYCOL 3350 17 GM PACKET. PO SCH ×2 (18:00→21:45)
[2020-08-02 19:30] VITALS: BP 123/78
[2020-08-02] MEDS: ATORVASTATIN CALCIUM 20 MG TABLET PO SCH (21:46)
[2020-08-02] MEDS: ACETAMINOPHEN 325 MG TABLET. PO PRN (21:47)
[2020-08-02 23:40] VITALS: BP 130/80
[2020-08-03] MEDS: ONDANSETRON PF 4 MG/2 ML VIAL. IVP PRN ×3 (02:35→15:27)
[2020-08-03 03:35] VITALS: BP 112/79
[2020-08-03 05:22] LABS: CALCIUM 8.2 mg/dL (8.5-10.1); CREATININE 1.1 mg/dL (0.6-1.0); GFR 50.7; MAGNESIUM 1.8 mg/dL (1.8-2.4); POTASSIUM 4.3 mmol/L (3.5-5.1)
[2020-08-03 07:00] VITALS: BP 136/61
[2020-08-03] MEDS: POLYETHYLENE GLYCOL 3350 17 GM PACKET. PO SCH ×3 (07:22→18:00)
[2020-08-03] MEDS: ACETAMINOPHEN 325 MG TABLET. PO PRN (07:25)
[2020-08-03] MEDS: MORPHINE SULFATE 2 MG/ML VIAL. IV PRN ×2 (07:27→14:32)
[2020-08-03] MEDS: ASPIRIN CHEWABLE 81 MG TABLET. PO SCH (08:00)
--- NOTE | 2020-08-03 08:25 | PDOC ---
PULMONARY PROGRESS NOTES DATE: 08/03/20 TIME: 08:25 Subjective Patient at times still short of air. Vitals Vital Signs Date Time Temp Pulse Resp B/P (MAP) Pulse Ox O2 Delivery O2 Flow Rate FiO2 08/03/20 07:27 92 Nasal Cannula 3.0 08/03/20 07:00 106 18 136/61 (86) 08/03/20 03:35 98.4 98.4 ROS: No Nausea, No Chest Pain, No Abdominal Pain, No Increase Cough Lungs: Clear Cardiovascular: S1, S2 Abdomen: Soft Neuro Exam: Alert Extremities: No Edema Skin: Warm Labs Laboratory Tests Test 08/02/20 10:10 08/03/20 04:45 Sodium Level 139 mmol/L (136-145) 138 mmol/L (136-145) Potassium Level 3.2 mmol/L (3.5-5.1) 4.3 mmol/L (3.5-5.1) Chloride Level 103 mmol/L (98-107) 105 mmol/L (98-107) Carbon Dioxide Level 30 mmol/L (21-32) 27 mmol/L (21-32) Anion Gap 6 (6-14) 6 (6-14) Blood Urea Nitrogen 20 mg/dL (7-20) 17 mg/dL (7-20) Creatinine 1.2 mg/dL (0.6-1.0) 1.1 mg/dL (0.6-1.0) Estimated GFR (Cockcroft-Gault) 45.8 50.7 Glucose Level 108 mg/dL (70-99) 126 mg/dL (70-99) Calcium Level 8.3 mg/dL (8.5-10.1) 8.2 mg/dL (8.5-10.1) Magnesium Level 1.8 mg/dL (1.8-2.4) Laboratory Tests Test 08/02/20 10:10 08/03/20 04:45 Sodium Level 139 mmol/L (136-145) 138 mmol/L (136-145) Potassium Level 3.2 mmol/L (3.5-5.1) 4.3 mmol/L (3.5-5.1) Chloride Level 103 mmol/L (98-107) 105 mmol/L (98-107) Carbon Dioxide Level 30 mmol/L (21-32) 27 mmol/L (21-32) Anion Gap 6 (6-14) 6 (6-14) Blood Urea Nitrogen 20 mg/dL (7-20) 17 mg/dL (7-20) Creatinine 1.2 mg/dL (0.6-1.0) 1.1 mg/dL (0.6-1.0) Estimated GFR (Cockcroft-Gault) 45.8 50.7 Glucose Level 108 mg/dL (70-99) 126 mg/dL (70-99) Calcium Level 8.3 mg/dL (8.5-10.1) 8.2 mg/dL (8.5-10.1) Magnesium Level 1.8 mg/dL (1.8-2.4) Medications Active Scripts Medications Dose Route/Sig Max Daily Dose Days Date Category Lisinopril 5 Mg Tablet 5 Mg PO DAILY 04/01/20 Reported Famotidine 20 Mg Tablet 20 Mg PO BID 03/11/20 Reported Aspirin 81 Mg Tab.chew 81 Mg PO DAILY 03/11/20 Reported Atorvastatin Calcium 20 Mg Tablet 20 Mg PO HS 03/11/20 Reported Spironolactone 25 Mg Tablet 25 Mg PO BID 03/11/20 Reported Furosemide 40 Mg Tablet 40 Mg PO BID 03/11/20 Reported Potassium Chloride 8 Meq Capsule.er 16 Meq PO BID 03/11/20 Reported [adempas] 2.5 Mg PO TID 03/11/20 Reported Impression . IMPRESSION: 1. Acute on chronic respiratory failure, multifactorial in etiology, including pulmonary embolism, acute exacerbation of chronic obstructive pulmonary disease, acute bronchitis, acute diastolic congestive heart failure. 2. Abnormal CT of the chest. 3. Pulmonary embolism. 4. Acute exacerbation of chronic obstructive pulmonary disease. 5. Smoker. 6. History of pulmonary embolism. 7. History of colon cancer status post resection. 8. COVID-19 negative 9. Hypokalemia. 10. Obesity, obstructive sleep apnea-hypopnea syndrome. Plan . Continue oxygen supplementation Anticoagulation Prednisone and doxycycline Lifetime anticoagulation Discontinue tobacco use. KAMERON CARR MD Aug 03, 2020 08:25
[2020-08-03] MEDS: DOXYCYCLINE HYCLATE 100 MG in IV DEXTROSE 5% 100ML 100 ML IV SCH ×3 (09:00→21:00)
[2020-08-03] MEDS: predniSONE 20 MG TABLET PO SCH (09:00)
[2020-08-03] MEDS ORDERED: FUROSEMIDE 40 MG TABLET. PO SCH (09:00)
[2020-08-03] MEDS: ADEMPAS 1 MG PO SCH ×3 (09:00→21:00)
[2020-08-03] MEDS: SPIRONOLACTONE 25 MG TABLET PO SCH ×2 (09:00→21:00)
[2020-08-03] MEDS: LACTOBACILLUS RHAMNOSUS GG 1 CAPSULE. PO SCH ×2 (09:00→21:00)
[2020-08-03] MEDS: FAMOTIDINE 20 MG TABLET. PO SCH ×2 (09:00→21:00)
[2020-08-03] MEDS: FLUTICASONE/VILANTEROL 100/25 INHALER. INH SCH (09:00)
[2020-08-03] MEDS: LISINOPRIL 5 MG TABLET. PO SCH (09:00)
[2020-08-03] MEDS ORDERED: MAGNESIUM CITRATE 296 ML SOLUTION. PO ONE ×2 (10:00→15:30)
--- NOTE | 2020-08-03 10:44 | PDOC ---
[employer] PROGRESS NOTE Date of Service DOS: DATE: 08/03/20 TIME: 10:36 Chief Complaint Chief Complaint acute hypoxic respirtory failure new pumonary embolism, on treatment lovenox Acute CHF exacerbation Elevated troponin Elevated D-dimer Hypokalemia Malnutrition, moderate Obesity, BMI 40 COVID-19 PUI, prior recovered, months ago, Constipation Plan: Continue with Lovenox Continue empiric IV antibiotics Pending echocardiogram MiraLAX every 6 hours until bowel movement History of Present Illness History of Present Illness 08/02/2020 No acute events overnight. Patient is afebrile. Saturating 93% on room air without any dyspnea. Mild tachycardia from 96 to 104 bpm. Patient reports no bowel movement for at least 4 days. Patient's chart, labs, images were reviewed and discussed with RN tearful and emotional mult times, will need PAT team follow up at [place], adjustment disorder and active grief that she has been self medicating with METH, cessation discussed LEg swelling is better still weakness and shortness of breath wean 02 as able 08/03/2020 Patient is seen and examined. Patient is in a lot of abdominal pain. Patient complains of severe constipation, no bowel movement in the last couple days. Patient requires Milk and Molasses enema because she tried Magnesium Citrate and it did not help. Patient's case is discussed with RN, Manager Of Administration and Psychiatrist. Patient's chart is reviewed. Vitals/I&O Vitals/I&O: Vital Signs Date Time Temp Pulse Resp B/P (MAP) Pulse Ox O2 Delivery O2 Flow Rate FiO2 08/03/20 07:27 92 Nasal Cannula 3.0 08/03/20 07:00 106 18 136/61 (86) 08/03/20 03:35 98.4 98.4 I & O 08/02/20 08/02/20 08/03/20 15:00 23:00 07:00 Intake Total 1300 ml 800 ml Output Total 350 ml Balance 1300 ml 450 ml Physical Exam General: Alert, Oriented X3, moderate distress (Patient has severe abdominal pain and constipation. ) Heart: Regular rate Lungs: Clear, Other (Oxygen saturation is 92 with nasal canula. ) Abdomen: Other (Positive tenderness x4 quadrant) Extremities: No clubbing, No cyanosis, Other (Bilateral pedal edema) Skin: No breakdown Labs Labs: Laboratory Tests Test 08/03/20 04:45 Sodium Level 138 mmol/L (136-145) Potassium Level 4.3 mmol/L (3.5-5.1) Chloride Level 105 mmol/L (98-107) Carbon Dioxide Level 27 mmol/L (21-32) Anion Gap 6 (6-14) Blood Urea Nitrogen 17 mg/dL (7-20) Creatinine 1.1 mg/dL (0.6-1.0) Estimated GFR (Cockcroft-Gault) 50.7 Glucose Level 126 mg/dL (70-99) Calcium Level 8.2 mg/dL (8.5-10.1) Magnesium Level 1.8 mg/dL (1.8-2.4) Review of Systems Review of Systems: Patient complains constipation Patient reports abdominal pain Patient denies headache. Assessment and Plan Assessmemt and Plan Problems Medical Problems: (1) CHF exacerbation Status: Acute Assessment: Acute hypoxic respirtory failure Pulmonary Embolism Acute CHF exacerbation Hypokalemia Malnutrition, moderate Constipation Plan: 1) Order Milk and Molasses enema today for patient constipation 2) Continue monitor tech 3) Awaiting Echocardiogram 4) DVT prophylaxis 5) PT/ OT 6) Continue home meds 7) Full code 8) Subspecialties input appreciated Comment Review of Relevant I have reviewed the following items chavo (where applicable) has been applied. Medications: Current Medications Medications (Trade) Dose Ordered Sig/Betty Route PRN Reason Start Time Stop Time Status Last Admin Dose Admin Potassium Chloride (Klor-Con) 40 meq 1X ONCE PO 08/02/20 12:30 08/02/20 12:31 DC 08/02/20 13:07 Polyethylene Glycol (miraLAX PACKET) 17 gm Q6HRS PO 08/02/20 18:00 08/03/20 07:22 Info (Anti-Coagulation Monitoring By Pharmacy) 1 each PRN DAILY PRN MC SEE COMMENTS 08/02/20 15:15 08/02/20 15:48 Justifications for Admission Other Justification Acute CHF exacerbation, acute COPD ROBERTO CARLOS SIMMONS III DO Aug 03, 2020 10:43
--- NOTE | 2020-08-03 10:56 | NUR ---
SS following for discharge planning. SS reviewed pt chart and discussed with pt RN. Pt is from home with significant other and is currently requiring oxygen at three liters nasal canula. Pt has home oxygen. Pt has HCBS services with [place]. Pt Methamphetamine positive. Dayday from PAT team met with pt today. Pt has services with [facility]. Dayday cleared pt to continue outpatient mental health services with [place]. Pt reporting that she has not had a bowel movement in two weeks. Cardiology and pulmonology following. Discharge plan is to home when medically ready. SS will continue to follow for discharge planning.
[2020-08-03 11:00] VITALS: BP 115/58
--- NOTE | 2020-08-03 12:43 | PDOC2 ---
GI CONSULT Date of Service: DATE: 08/03/20 TIME: 12:41 Reason For Consult: stomach pain, constipation HPI: HPI: 60 y/o female admitted 07/31 w/ PE and CHF. She currently reports severe LLQ pain and is laying sideways in bed kicking her legs and moaning. She is very anxious and almost in tears, saying she needs to be "knocked out" because the pain is too much. She says the pain started early this morning and she hasn't had pain like this before. Apparently some history of constipation usually controlled with Miralax (looks like this was started yesterday). Unclear when last stool before milk of molasses enemas x 4 today - nurse reports some hard balls of stool resulted along with brown water. Nursing reports she has displayed odd/anxious behavior prior to today. Denies reflux/heartburn, dysphagia, n/v, diarrhea, hematochezia, melena, and weight loss. No appetite w/ current pain. H/o colon cancer diagnosed on colonoscopy at in 2016. Had colon resection and required no additional treatment. Reports normal colonoscopy at last year. Doesn't remember if had previous EGD. S/p cholecystectomy - not sure about stones. Denies liver, pancreas, or PUD history. Denies use of any pain medication at home, getting morphine here. PMH: PMH: CHF, HTN, HLD, pulmonary HTN, PE, ELOY, GERD, colon cancer, depression, substance abuse colon resection, cholecystectomy FH: Family History: No pertinent hx (difficult to obtain at this time) Social History: Smoke: <1 pack per day ALCOHOL: other (heavy in the past, less now) Drugs: Crystal meth ROS: Difficult to obtain, see HPI. Vitals: Vitals: Vital Signs Date Time Temp Pulse Resp B/P (MAP) Pulse Ox O2 Delivery O2 Flow Rate FiO2 08/03/20 11:00 107 22 115/58 (77) 90 Room Air 08/03/20 07:57 3.0 08/03/20 03:35 98.4 98.4 Labs: Labs: Laboratory Tests Test 08/03/20 04:45 Sodium Level 138 mmol/L (136-145) Potassium Level 4.3 mmol/L (3.5-5.1) Chloride Level 105 mmol/L (98-107) Carbon Dioxide Level 27 mmol/L (21-32) Anion Gap 6 (6-14) Blood Urea Nitrogen 17 mg/dL (7-20) Creatinine 1.1 mg/dL (0.6-1.0) Estimated GFR (Cockcroft-Gault) 50.7 Glucose Level 126 mg/dL (70-99) Calcium Level 8.2 mg/dL (8.5-10.1) Magnesium Level 1.8 mg/dL (1.8-2.4) Allergies: Coded Allergies: ketamine (Verified Allergy, Severe, Anaphylaxis, 07/31/20) Penicillins (Verified Allergy, Intermediate, "hives" , 03/11/20) Medications: Current Medications Medications (Trade) Dose Ordered Sig/Betty Route PRN Reason Start Time Stop Time Status Last Admin Dose Admin Polyethylene Glycol (miraLAX PACKET) 17 gm Q6HRS PO 08/02/20 18:00 08/03/20 07:22 Info (Anti-Coagulation Monitoring By Pharmacy) 1 each PRN DAILY PRN MC SEE COMMENTS 08/02/20 15:15 08/02/20 15:48 Imaging: Imaging: LE US 07/31 IMPRESSION: 1. No evidence for DVT in the bilateral lower extremities. 2. Soft tissue edema about the lower legs bilaterally. Chest CTA 07/31 IMPRESSION: 1. Pulmonary emboli are seen within the segmental pulmonary arterial branches of the lower lobes. 2. Enlargement of the right ventricle is similar to 03/31/2020, likely chronic right heart failure although given these findings, right heart strain cannot be excluded. 3. Patchy opacities in lung bases may represent multifocal consolidative process or atelectasis or early infarction may also have this appearance. Imaging follow-up in 3-6 months is recommended to exclude underlying mass. CXR 07/31 IMPRESSION: 1. Mild pulmonary edema. Moderate cardiomegaly. Echo 08/02 <Conclusion> The left ventricle is normal size. The ejection fraction is moderately impaired. Estimated ejection fraction is 35%, Paradoxic motion and flattening of septum consistent right ventricle volume and pressure overload. Doppler and Color Flow revealed no significant aortic regurgitation. There is no significant aortic valvular stenosis. Doppler and Color-flow revealed trace mitral regurgitation. Doppler and Color Flow revealed moderate tricuspid regurgitation. Estimated PAP 55 mmHg. PE: GEN: appears uncomfortable, gown off, half covered by sheets HEENT: Atraumatic, PERRL LUNGS: diminished anteriorly HEART: mildly tachycardic in chart ABD: round, large - exam limited - she is constantly moving and moaning EXTREMITY/SKIN: some purplish discoloration lower legs NEURO/PSYCH: A & O 3, very anxious A/P: A/P: PE, CHF LLQ pain, constipation H/o colon cancer s/p resection - CRC screen UTD (2019 @ [facility]) COVID negative 07/31/20 +meth -- No abdominal imaging yet - ideally would have CT; however, I doubt she would cooperate. Start with [facility] and will review w/ Dr. Olvera. ?Relistor Defer requests for pain and anxiety medication to Dr. Rodriguez. ORQUIDEA CEDENO Aug 03, 2020 12:43
[2020-08-03] MEDS ORDERED: METHYLNALTREXONE 12 MG/0.6 ML VIAL. SQ ONE (13:30)
--- NOTE | 2020-08-03 13:54 | RAD ---
EXAM: Abdomen, single view. HISTORY: Pain. Constipation. COMPARISON: None. FINDINGS: Frontal views of the abdomen are obtained. There is a large amount of gas and stool within the colon. There are prominent air-filled small bowel within the midabdomen. No convincing transition point is seen. IMPRESSION: Large amount of colonic gas and stool suggesting constipation. There are superimposed non cystic air-filled small bowel within the abdomen. No convincing transition point is seen to suggest o bstruction. Electronically signed by: Vy Magallanes MD (08/03/2020 1:52 PM) [id number]
[2020-08-03 15:00] VITALS: BP 88/49
[2020-08-03] MEDS: fentaNYL PF VIAL 100 MCG/2 ML VIAL IVP PRN ×4 (15:27→22:00)
--- NOTE | 2020-08-03 15:53 | PDOC ---
IBRAHIMA URIBE TRIMMING DEPARTMENT BLOCKER 08/03/20 1553: CARDIO Progress Notes Date and Time Date of Service 08/03/2020 Time of Evaluation 1310 Subjective Subjective: No Chest Pain, No Palpitations, Other (SOA better) Vitals Vitals Vital Signs Date Time Temp Pulse Resp B/P (MAP) Pulse Ox O2 Delivery O2 Flow Rate FiO2 08/03/20 15:27 90 Nasal Cannula 3.0 08/03/20 14:32 20 08/03/20 11:00 107 115/58 (77) 08/03/20 03:35 98.4 98.4 Weight Weight [ ] Input and Output Intake and Output Intake and Output 08/03/20 07:00 Intake Total 2100 ml Output Total 350 ml Balance 1750 ml Intake Oral 2100 ml Output Urine Total 350 ml # Voids 2 Laboratory Labs Laboratory Tests Test 08/03/20 04:45 Sodium Level 138 mmol/L (136-145) Potassium Level 4.3 mmol/L (3.5-5.1) Chloride Level 105 mmol/L (98-107) Carbon Dioxide Level 27 mmol/L (21-32) Anion Gap 6 (6-14) Blood Urea Nitrogen 17 mg/dL (7-20) Creatinine 1.1 mg/dL (0.6-1.0) Estimated GFR (Cockcroft-Gault) 50.7 Glucose Level 126 mg/dL (70-99) Calcium Level 8.2 mg/dL (8.5-10.1) Magnesium Level 1.8 mg/dL (1.8-2.4) Physical Exam HEENT: Neck Supple W Full Motion Chest: Symmetric LUNGS: Other (diminished) Heart: RRR (SR) Abdomen: Other (obese) Extremities: No Calf Tenderness Neurology: alert, oriented, follow commands Assessment Assessment 1. PE: covid negative 2. Acute systolic/diastolic CHF: appears compensated 3. suspect ELOY 4. Abdominal pain: persistent. GI consulted 5. Hx of colon CA 6. Substance abuse: uses meth with significant family stressors in [facility] 7. Morbid obesity 8. Depression: recent loss in family. Defer to PCP 9. Presumed NICM 10. HLP; continue statin Recommendations 1. Anticoagulation per pulmonary 2. Lasix therapy 3. Start on toprol. Agree with aldactone and lisinopril 4. Will outpt ELOY w/u and sichemic workup as well pending compliance and meth abstinence. 5. Wt loss and lifestyle modification Justicifation of Admission Dx: Justifications for Admission: Justification of Admission Dx: Yes DUSTY MENDOZA MD 08/04/20 1008: CARDIO Progress Notes Assessment Assessment Patient seen and examined on 08/03/20 I agree with our nurse practitioners assessment and plan above. PE: covid negative. Anticoagulation as above. Acute systolic/diastolic CHF: appears compensated. Decreased ejection fraction on echo. Continue present medications and monitor. Abdominal pain: persistent. GI consulted Hx of colon CA Substance abuse: uses meth with significant family stressors in [facility]; continue statin IBRAHIMA URIBE APRN Aug 03, 2020 15:53 DUSTY MENDOZA MD Aug 04, 2020 10:08
[2020-08-03] MEDS ORDERED: METOPROLOL SUCC 24HR ER 25 MG TAB.ER.24H. PO ONE (16:00)
[2020-08-03] MEDS ORDERED: FUROSEMIDE 40 MG/4 ML VIAL. IVP ONE (18:00)
[2020-08-03 18:57] VITALS: BP 116/91
[2020-08-03] MEDS: ATORVASTATIN CALCIUM 20 MG TABLET PO SCH (21:00)
[2020-08-03 23:14] VITALS: BP 127/86
--- NOTE | 2020-08-03 23:59 | NUR ---
Pt was verbally aggressive and agitated at shift change with significant other Riaz at bedside. Pt was demanding more pain medication along with a transfer to . Pt is restless, unable to stand alone as Riaz assisted pt to bathroom following a dose of IV lasix at shift change. Pt remained agitated and received 2 doses of IV fentanyl for abdominal pain. V/S remained stable, at 2314, pt became bradycardic and unresponsive, code blue was initiated, code team responded at bedside. Pt received ACLS and remained in PEA until time was called at [id number]. Family was notified and responded at bedside.
[2020-08-04] MEDS: POLYETHYLENE GLYCOL 3350 17 GM PACKET. PO SCH
[2020-08-04] MEDS ORDERED: METOPROLOL SUCC 24HR ER 25 MG TAB.ER.24H. PO SCH (09:00)
== END 2020-08-03 23:36 | DRG 175 ==
LOC: ER 00:58 → 2 SOUTH 03:10 → 6 SOUTH 10:54 → 2 NORTH 08-02 13:55
PROVIDERS: ADMIT Internal Medicine; ATTEND Internal Medicine
DX: I26.99 Other pulmonary embolism without acute cor pulmonale (principal); J96.21 Acute and chronic respiratory failure with hypoxia; I50.41 Acute combined systolic (congestive) and diastolic (congestive) heart failure; E44.0 Moderate protein-calorie malnutrition; J44.0 Chronic obstructive pulmonary disease with (acute) lower respiratory infection; J44.1 Chronic obstructive pulmonary disease with (acute) exacerbation; Z68.41 Body mass index [BMI] 40.0-44.9, adult; I11.0 Hypertensive heart disease with heart failure; E87.6 Hypokalemia; E66.9 Obesity, unspecified; Z20.822 Contact with and (suspected) exposure to COVID-19; J20.9 Acute bronchitis, unspecified; F17.210 Nicotine dependence, cigarettes, uncomplicated; E78.5 Hyperlipidemia, unspecified; K21.9 Gastro-esophageal reflux disease without esophagitis; F32.9 Major depressive disorder, single episode, unspecified; G47.33 Obstructive sleep apnea (adult) (pediatric); K59.00 Constipation, unspecified; I07.1 Rheumatic tricuspid insufficiency; I50.82 Biventricular heart failure; Z86.711 Personal history of pulmonary embolism; Z85.038 Personal history of other malignant neoplasm of large intestine; Z90.49 Acquired absence of other specified parts of digestive tract; Z88.0 Allergy status to penicillin; Z81.8 Family history of other mental and behavioral disorders; Z82.49 Family history of ischemic heart disease and other diseases of the circulatory system
CPT/HCPCS: 36415; 71045; 71275; 74018; 80048; 80053; 80307; 82962; 83690; 83735; 83880; 84145; 84484; 85025; 85379; 87426; 87804; 93005; 93306; 93970; J0171; J0461; J1650; J1940; J2212; J2270; J2405; J3010; J3490; J7060; J7512; U0003; 99285-25; G0378